=== PATIENT | female | born 1970 ===

== ENCOUNTER 2023-12-02 20:29 | Outpatient (REF) | payer OTHER, SELFPAY ==
[2023-12-08 11:10] LABS: Age Gdln ACOG Testing Note (.); HPV Aptima Negative (Negative); IGP, Aptima HPV, rfx 16/18,45 Note (.)
== END 2023-12-02 20:30 | disposition home or self-care (01) ==
LOC: LAB 20:29
PROVIDERS: Visit Provider Physician Assistant
DX: Z01.419 Encounter for gynecological examination (general) (routine) without abnormal findings (principal)
CPT/HCPCS: 87624; G0145

== ENCOUNTER 2023-12-17 08:52 | Outpatient (OUT) | payer OTHER, SELFPAY ==
--- NOTE | 2023-12-17 08:58 | MM_ITS ---
Patient Name: CHACE ROPER MR#: [id number] : 1970 Exam Date: 12/17/2023 Ordering Doctor: DR Yoshi Bolton . RADIOLOGY REPORT PROCEDURE: MM TOMOSYNTHESIS SCREENING BI COMPARISON: MM TOMOSYNTHESIS SCREENING BI, 06/09/2022. MAMMO LT DX, 06/04/2020. MAMMO GAYATHRI SCREEN, 05/24/2020. MAMMO GAYATHRI SCREEN, 05/23/2019. INDICATIONS: Screening Calculator Name NCI Breast Cancer Risk Assessment Tool 5 Year Breast Cancer Risk 1.00% Lifetime Breast Cancer Risk 7.70% Personal Breast Cancer No Personal Ovarian Cancer No Treatments None Family Cancers None LOCATION: [facility] BREAST COMPOSITION: There are scattered areas of fibroglandular density. FINDINGS: DIAGNOSTIC CATEGORY 1--NEGATIVE. RIGHT BREAST: No significant suspicious finding. No significant change has occurred. LEFT BREAST: No significant suspicious finding. No significant change has occurred. RECOMMENDATIONS: ROUTINE MAMMOGRAM AND CLINICAL EVALUATION IN 12 MONTHS. PLEASE NOTE: A NORMAL MAMMOGRAM DOES NOT EXCLUDE THE POSSIBILITY OF BREAST CANCER. A CLINICALLY SUSPICIOUS PALPABLE LUMP SHOULD BE BIOPSIED. Dictated by: Andreas Guzman M.D. on 12/30/2023 at 13:03 Approved by: Andreas Guzman M.D. on 12/30/2023 at 13:12
--- NOTE | 2023-12-17 08:58 | XR_ITS ---
[address] [address] Patient Name: CHACE ROPER MRN: [id number] date: 1970 Sex: F Assigned Patient Location: [facility] Current Patient Location: [facility] Accession/Order Number: [id number] Exam Date: 12/17/2023 09:18 Report Date: 12/17/2023 09:49 At the request of: HELADIO WALKER Procedure: XR DEXA axial skeleton EXAMINATION: XR DEXA axial skeleton HISTORY: Postmenopausal state Z78.0 COMPARISON: No relevant comparison available. TECHNIQUE: Dual-energy X-ray absorptiometry (DXA) was performed. FINDINGS: SPINE ANALYSIS: Average bone mineral density is 1.335 g/cm2. T-score (standard deviation relative to young adult mean): 1.3 . HIP ANALYSIS: Lowest bone mineral density is within the right femoral neck, 0.944 g/cm2. T-score (standard deviation relative to young adult mean): -0.7 . XR/XR DEXA axial skeleton IMPRESSION: [employer] Classification: Normal - Low Fracture Risk FRAX: Electronically authenticated by: KAMERON ARROYO Date: 12/17/2023 09:49
--- OUTSIDE RECORDS SUMMARY | 2023-12-17 09:05 | XMS_ITS | CCD ---
Author Organization [facility] Care Team Providers Care Apprise Counselor Name Role Phone LUISITO RUBIO Unavailable Unavailable MTZ, NICK W Unavailable Unavailable LUISITO RUBIO Unavailable Unavailable MTZ, NICK W Unavailable Unavailable Mtz, Nick W Primary Care Unavailable Eisenstein, Alisson Attending Unavailable Eisenstein, Alisson Admitting Unavailable Le, Rob K Admitting Unavailable Mtz, Nick W Primary Care Unavailable Le, Rob K Attending Unavailable Mtz, Nick W Primary Care Unavailable Mtz, Nick W Primary Care Unavailable Eisenstein, Alisson Attending Unavailable Eisenstein, Alisson Admitting Unavailable JACQUELINE MALAVE Attending Unavailable Problems Problem Classification Problem Date Documented Date Episodic/Chronic Immunizations and screening for infectious disease (1 source) Encounter for screening for human papillomavirus (HPV); Translations: [Encounter for screening for human papillomavirus (HPV)] Onset: 03-15-2018 Episodic Unclassified (1 source) Encounter for screening mammogram for malignant neoplasm of breast; Translations: [Encounter for screening mammogram for malignant neoplasm of breast] Onset: 03-24-2018 Episodic Results Test Name Value Interpretation Reference Range Facility Consent Formson 06-29-2023 Consent Forms [id number] GTIFF Normal [facility] CMP Standardon 05-20-2023 eGFR Non AA >60 Invalid Interpretation Code [facility] Comment on above: Performed By: #### 1 [id number], 4896436, 1319141, [id number], 3658740, 8280179, 9312762 ####[facility] (DEFAULT)[address] [place] [address] eGFR AA >60 Invalid Interpretation Code [facility] Comment on above: Performed By: #### 1 [id number], 2239161, 3368984, [id number], 6859235, 2385374, 2778555 ####[facility] (DEFAULT)[address] [place] [address] Albumin [Mass/Vol] 4.1 g/dL Normal 3.5-5.0 [facility] Comment on above: Performed By: #### 1 [id number], 2249704, 1234928, 3945575761, 5422066, 7934570, 9147741 ####[facility] (DEFAULT)[address] [place] [address] Albumin/Globulin [Mass ratio] 1.0 {ratio} Low 1.4-2.6 [facility] Comment on above: Performed By: #### 1 [id number], 6972627, 1356279, 0067553175, 4260748, 5020980, 5700166 ####[facility] (DEFAULT)[address] [place] [address] Alk Phos 68 IU/L Normal 32-91 [facility] Comment on above: Performed By: #### 1 [id number], 1110372, 8079175, 9011964774, 4467205, 0127538, 7138192 ####[facility] (DEFAULT)[address] [place] [address] ALT [Catalytic activity/Vol] 19.0 U/L Normal 14.0-54.0 [facility] Comment on above: Performed By: #### 1 [id number], 2601004, 6427069, 0749016150, 4889345, 4864607, 3457211 ####[facility] (DEFAULT)[address] [place] [address] 26744 Anion gap [Moles/Vol] 11.6 mmol/L Normal 5.0-19.0 [facility] Comment on above: Performed By: #### 1 [id number], 1620457, 1465490, 2783073477, 3733667, 6188568, 9802950 ####[facility] (DEFAULT)[address] [place] [address] 69450 AST [Catalytic activity/Vol] 21 U/L Normal 15-41 [facility] Comment on above: Performed By: #### 1 [id number], 4589914, 7898648, 8499421481, 4568093, 9498442, 8746820 ####[facility] (DEFAULT)[address] [place] [address] 24003 Bili Total 0.8 mg/dL Normal 0.3-1.2 [facility] Comment on above: Performed By: #### 1 [id number], 7357516, 9239664, 0300576715, 0121170, 0994281, 9995460 ####[facility] (DEFAULT)[address] [place] [address] 46526 Calcium [Mass/Vol] 9.3 mg/dL Normal 8.9-10.3 [facility] Comment on above: Performed By: #### 1 [id number], 4815720, 3117515, 8723338925, 3230668, 2810051, 5555427 ####[facility] (DEFAULT)[address] [place] [address] 20100 Chloride [Moles/Vol] 104 mmol/L Normal 101-111 [facility] Comment on above: Performed By: #### 1 [id number], 6518715, 0135070, 7885226596, 4361785, 6039208, 7319131 ####[facility] (DEFAULT)[address] [place] [address] 94078 CO2 [Moles/Vol] 25 mmol/L Normal 21-32 [facility] Comment on above: Performed By: #### 1 [id number], 7654536, 2575351, 2204509695, 3986843, 6374150, 3544544 ####[facility] (DEFAULT)[address] [place] [address] 73955 Creatinine [Mass/Vol] 0.90 mg/dL Normal 0.60-1.30 [facility] Comment on above: Performed By: #### 1 [id number], 7347441, 9678122, 5986491214, 9299851, 2318422, 4445088 ####[facility] (DEFAULT)[address] [place] [address] 53914 Globulin (S) [Mass/Vol] 3.8 g/dL Normal 1.5-4.3 [facility] Comment on above: Performed By: #### 1 [id number], 2882432, 2695716, 2234983898, 9824325, 2885484, 7921009 ####[facility] (DEFAULT)[address] [place] [address] 53902 Glucose [Mass/Vol] 108.0 mg/dL Normal 74.0-118.0 [facility] Comment on above: Performed By: #### 1 [id number], 4759973, 1532647, 4869279107, 8514709, 6546167, 0148206 ####[facility] (DEFAULT)[address] [place] [address] Osmolality 276 mOsm/L Invalid Interpretation Code [facility] Comment on above: Performed By: #### 1 [id number], 7224660, 1663883, 8780963912, 5236305, 0417148, 8360742 ####[facility] (DEFAULT)[address] [place] [address] 73835 Potassium [Moles/Vol] 3.6 mmol/L Normal 3.6-5.1 [facility] Comment on above: Performed By: #### 1 [id number], 7482957, 9852499, 3941104127, 7220940, 6588747, 5301247 ####[facility] (DEFAULT)[address] [place] [address] 03975 Protein [Mass/Vol] 7.9 g/dL Normal 6.5-8.1 [facility] Comment on above: Performed By: #### 1 [id number], 6354705, 2054330, 0831292757, 0581521, 6743185, 4039921 ####[facility] (DEFAULT)[address] [place] [address] 16623 Sodium [Moles/Vol] 137.0 mmol/L Normal 136.0-144.0 [facility] Comment on above: Performed By: #### 1 [id number], 9712067, 5957056, 4044584525, 2963418, 4658226, 0011020 ####[facility] (DEFAULT)[address] [place] [address] 75936 Urea nitrogen [Mass/Vol] 16 mg/dL Normal 03-20 [facility] Comment on above: Performed By: #### 1 [id number], 8482179, 9579506, 5735227011, 9270312, 1437430, 9788580 ####[facility] (DEFAULT)[address] [place] [address] 25062 Urea nitrogen/Creatinine [Mass ratio] 17.7 mg/mg High 4.6-16.2 [facility] Comment on above: Performed By: #### 1 [id number], 3041018, 8631969, 0454157150, 9507405, 3200405, 2758044 ####[facility] (DEFAULT)[address] [place] [address] 45038 GGTon 05-20-2023 Gamma glutamyl transferase [Catalytic activity/Vol] 13.0 U/L Normal 7.0-50.0 [facility] Comment on above: Performed By: #### 1 [id number], 3012528, 0805007, 9219033345, 4567402, 2362969, 7142809 ####[facility] (DEFAULT)[address] [place] [address] 52143 Iron Levelon 05-20-2023 Iron [Mass/Vol] 96.0 ug/dL Normal 28.0-170.0 [facility] Comment on above: Performed By: #### 1 [id number], 8563045, 5593880, 9982065784, 7420927, 5479338, 5059264 ####[facility] (DEFAULT)[address] [place] [address] 49772 LDHon 05-20-2023 LDH 154.0 IU/L Normal 98.0-192.0 [facility] Comment on above: Performed By: #### 1 [id number], 2235758, 8380044, 8156948585, 5310811, 9547757, 0861937 ####[facility] (DEFAULT)[address] [place] [address] 09047 Lipid Panel Standardon 05-20 Cholesterol [Mass/Vol] 179.0 mg/dL Normal 66.0-200.0 [facility] Comment on above: Performed By: #### 1 [id number], 0587629, 0854466, 0742001902, 0384457, 1377879, 8338696 ####[facility] (DEFAULT)[address] [place] [address] 43085 Cholesterol in HDL [Mass/Vol] 66 mg/dL Normal 40-71 [facility] Comment on above: Performed By: #### 1 [id number], 6755308, 8735261, 7644749056, 3276896, 8244965, 1756395 ####[facility] (DEFAULT)[address] [place] [address] 81140 Cholesterol in LDL [Mass/Vol] 98 mg/dL Normal 1-100 [facility] Comment on above: Performed By: #### 1 [id number], 0767385, 5392155, 5331641943, 0677230, 0284455, 9918293 ####[facility] (DEFAULT)[address] [place] [address] 55063 Cholesterol.total/C holesterol in HDL [Mass ratio] 2.7 {ratio} Normal 0.0-4.5 [facility] Comment on above: Performed By: #### 1 [id number], 3703304, 7783498, 6452094175, 8614178, 9230310, 2244140 ####[facility] (DEFAULT)[address] [place] [address] 73557 Triglyceride [Mass/Vol] 75.0 mg/dL Normal 0.0-150.0 [facility] Comment on above: Performed By: #### 1 [id number], 2060372, 6945126, 9724321568, 9151635, 6414489, 6677267 ####[facility] (DEFAULT)[address] [place] [address] 83012 VLDL. 15 mg/dL Normal 5-40 [facility] Comment on above: Performed By: #### 1 [id number], 8807613, 1327292, 5673694465, 4462814, 0490983, 7357609 ####[facility] (DEFAULT)[address] [place] [address] 79122 Phoson 05-20-2023 Phosphate [Mass/Vol] 3.0 mg/dL Normal 2.5-4.6 [facility] Comment on above: Performed By: #### 1 [id number], 0359570, 5567547, 8790809255, 8869096, 9676562, 0673627 ####[facility] (DEFAULT)[address] [place] [address] Uric Acidon 05-20-2023 Urate [Mass/Vol] 5.6 mg/dL Normal 2.6-8.0 [facility] Comment on above: Performed By: #### 1 [id number], 6209377, 1114046, 7809453787, 7232767, 9437815, 7277785 ####[facility] (DEFAULT)[address] [place] [address] Coding Summaryon 04-29-2023 Coding Summary HTMLBase 64 AzcmiihpCAb0xHi+PGhlYWQ +AO7TXFQzA07gqZXfbD3pM9 NMTElOSywgQVBQTElOSyIgb oPeXP8glORrROZg IC8+VZ8sKHSiVcqqzWKnr6G 2zQD2H40dvp7kMWspuME8DA EuXjTydvjgk4tsdRb5NKqsB mluOyBt RVAznG68BLE3zN30Hx49wAW pqXLks9ulrOs4LnItFTZyJD P1kPtwHRomq2GuVAExP54sy LKhi8U8 LPCrqFgtiSUqUjPnfHI1tE9 yXGidolvuu9obcvwgGit4sk 42wRCew2Y8gUB1G0WvcmE2R GJvbGQg YqioiPXQwN6remplc3mznwv nAuSqBUYfVDy7CRo7HAAvbD pgVkIeSD66HUI2GFWpufJcT 2FsLWFs vWxwVyL3b3W8Mc7WR9ENXfb sG3NCJQZLCHrzmNH+PC90cj 57O8RtYbezQmb3JTNeSYR6v XB5lM1z OTEtQCrxl3C6gKJ2S6JkjfQ dko2re3azHDNgEMvkK45xpW Stc0T6YGYbfIW1YQVilCiaY iBzaG93 Oyc+EBGcbBquq8OfYjbts7f fh2ohpHz0FedjTFCthiWybH mmIQR0w3GiPt6dJWJavSJ3j KO7rB9w XgAlYxG2GVljQ630OlQigWK tUsmiI58lG3MqgMT+PHRyPj z8DQIlzFgdHQ0dK5KbYLUrz mctbGVm yFzjTW4hBCUeaeimISUmaK4 oYQAjG1v4QzCbEsS4JKghI2 HtSPRguzyiGs74lK5tEcBxR uL9GQwp A8BzphK9LPYqiBPdACbhEEQ 3K37lo8U4TSYkDIGoAGP1tH P0dJ7skClnpjnurMKpxTfdo mVydGlj AYujZQfoC182LIQoqPwuQpP vZGluZyBEYXRlOiAgMTAvMD UvMjAyMzwvdGQ+LOCmEIK3c WxlPSAn eXIqFUotWx4peHregQdgHH1 qZHUpzlhtUZRobY4lTVXqdA WswWsfKW5oSBEbujxpn416H iAxMHB0 WZApdWIlR6VyoS5xKaRjINF aDAVuV4LaqHBjMPbhE808HX ldNlR7OVJkpcBzF4KqYOYah WduOiB0 q8M2Pl1Mi6OwmvkmK6AwxER wSxCxCyhvOTv4P7ThMopxtJ I+XG15JOPgCR56NIt9RTG1y WxlPSdi SVEoB7YdhO0gCjWpJCZlXXF kOyc+PHRhYmxlIHdpZHRoPS wjJXKlJrXxmNqpZR7yWk2nN GVyLWNv iYszkXMlZwHrk6xiUPNqRCj wWA0odJkbG8LvsDM4CKOxs3 a3Of85R68fA2ZhpVM+PGNvb UE2mVC0 xF0bHxTkJpX6APlwD337PnU hvJMjMuqrm4xtx6lxoCb7Dn P1WPSuioSalXtcSZU0a1JyO n98N62c IHdpZHRoPSIxNSUiIHZhbGl dov8ibF0fHi0+FWSxmGK2fD X1cZ8mBoKbMwY9NWjfC971R nRvcCIv Lecry5yyx1sxlRw4GbUdYPN isrFbqYmjEMQ8h4FiYz95S6 YqtQtjm0BbXsq4nz95rYQap 9Y5bTH2 O6QqFKXrcomszLLceLxkJX3 gJJRjipscBKQlxJ2pUUKbL0 a4WrTvLdS5PDipQ0CfdyF4H GJvbGQg YQFqmNDTlM0lyctcy2uyavu gVpYgXTHfPFa3BCk7PSGsaV plUoBiUCS4AlZ4LUG7wCIwl Q2yhEnt sbefiG5gXap+FDO5qLWapYX AUT5oRhsrhOR+NZBeUYT4oE ziBPusJKIxzS1eKWGoB3i8Q iAwLjA1 XTdsC5IskmX9EGNzcZLbXEC hiBVMwP9yobguu9wfprjxRd PtFCIvDBo2TTa6HFAiiRjrS iBsZWZ0 LxU0SIU5aUBfkQ0agQzjpng usW6xAqo+OupoiAgjVJL4HS z9O4HpFzi0JRAncZmjPM5kx GFkZGlu Ur2ccTlitVrzVK8aLUJpxck cu200BhDzn2thPMAqeQUfMW ubIZR6Y34qp1N0EXNiPLIqG EL3cJS8 oO0cxMzfqgmizKHqcDbshwZ ihDhhUKjpOQspS867NMZxbN gjVtLuJTv4M6YgUze6UFSaa AkvYA3x vZUvVUnjRj5gqIlxiOctZS7 vTLUsktqmy649QuGfm4qyHH XsfJBeNExzQJE6G28dj6A1Q CMwMDAw XYT2lHZ5aE2fdJnutwranST mdDsgdmVydGljYWwtYWxpZ2 24UGHrnYgzOpXzgYp1Q6NgK gu7RWVq yShoHX0xsBZbITbqKw4zpCj irTarYO6cBBBokhoon333Aq Ymo3rjARWogCUiLKawQJG6P 42fr5S8 EUWsXZTjHCJ3zHT9mT2zvHr nbjogbGVmdDsgdmVydGljYW jwDQcoA355AUQxhSysUsFns GllbnQg GBqdKAn6X5ZtVqympQS+PC9 5ZABnSO11cIRxsWGgy3uvdG g7UsWlEQJpLGM6lZkeGTcux 3JkZXIt G85awSRez1Q8AJTxnJbisYQ bGqMfqQQ1sK0eAHqtcohrm8 cakymuLnnoa4gxpy94mI86O 29sIHdp ZHRoPSIzMCUiIHZhbGlnbj0 bvU5dMr4+GPVjkLN5uQW4rK 6tBQPcLfK9RQczL246GpKaf CIvPjxj a6wmb7wunRh4TgF4PTIxmpW kiQmqZBR3f4LaLr64N15pAZ dpZHRoPSIyMCUiIHZhbGlnb o6hgZ1n Ii8+EGEhmZI6gCH6sW5oYpT nZqN4CNydN476FlRhaHCdDa ncB69rS4OafGA+HRAwLxj1I CBzdHls CX6ffDDsYYirUn9tOTY3ShG lDkGcSUsfU8HiUYWbbuzzyu hjeYV2TPRuLBRrgW61Xj1mo DogMTBw cJKScJ4hattjf9dotxnlKbK qBQExOSo0KCg5GFKrxIiuSt SrRTI6WfL3JVB7oGHpdR1vt Glnbjog pZ9cG9OuVINguvbsJp22wB2 eXkTtInE1PYbdCcz+RFVSSV WHQ4TwXNyQBJfiFVHPWEP6M 9LqJxj9 JUVznJubJO1boHCrZLsbAl8 dhDewcVnmWU3eHASwwysnLP FloA6wYNQshQOloNnwTS0wL TBpbjtm x565MwVhCIP5OBAngNIiD9Y evU5bSxLzQDOoFSJlS3DtpI IsNBirE168TOoqIgR7FPVst vMwK6Ey FMXgvYplHcR5q0F5Cg8oLx7 sQr0rQNhzNW12ZS65lSWxg7 F8jYC1T7IqFUUevkhqjrrzh XS1TEMc HSPppV28kQBgGEkwZw2nm4A 9n842YDZeUEYyhT03Ho6hpP ezZBRazTHCvA4urcbpo5htu jogIzAw BDBbTVt0YFk3VPSxyHrxQsY tPJU5FzX7GVK7aBVwuS1ewD mganhidR6gOwv+NTMgWWVhc lA3C0Iq Evr4NDDdkQzcBE2suWIdPXw eMg1crYgwyDkeYK2zOGIgyo ozVAYlsO2jUTHupHGozPpwD H1nTSCj igsob539NiHbIIR2ZWZfjMZ eF5NxwI5fFbZwXVRkQZCqS4 OupYOwTPqtI890GJwgQnJ6B HZlcnRp S9ArBIBwvCcjNdL7d6Y3Yu9 LIQ9QIEL3B5XhBmj5RCCwlU btGT0puGJzFQomNe9cpSiqi XabZE9k RULljvbfAOTvbG8iRFImwAI hlEvpWH5qLWVsnnxfa262Pe PjMCY0MAEmfXWeU9SloC3qO iAjMDAw SUZhG9ChmSLfNOvkD800JOl cKcS8IMWxkvYlY2JfNVGgpP avTwG2c4E0Df1ZeGFxG1ZnS 2a8X6Rl PjwvdHI+BY59HBCxUK81pFY kmXNmv5bqwJp4PvMkUHGaGH Z8bTvoEMooa6SqLGAlD22ti DBcx8I0 TLOwxCoqpOEkEzUjfEP5yA1 xVMnkvlufv3npmbxsBxfrj1 gdge86cW49K59mQTefTDTyO SIzMCUi VPNxqKhvro5qtD4oYi7+PGN esZP7fHX7zE6xGaYaVtF3BY mwH200ArKooEGaDefuj1zop 3yjaYl7 IbUgYNCfyjJqsCrxKGV5o8X cCk22C79tKAloYULyONPoCJ DuBNUidOwfto0beX7zXr4+P C8hj8kr pm98kY41oMC+CFOnUNA2fAk xYPrbQMAbqI7yPIvhOzG2KH TdUoYzoB02wIHoEPgdYd8xa WdodDog VA4yWLLqyooto898RpKbs6c cTWQdvQNkZMibIZF9E61tp4 Y5IOEwXPWpWJD3hLR9sE0nw Glnbjog bGVmdDsgdmVydGljYWwtYWx yE130BQGsxPtuMpJxzURkU3 ppbtTKUO4eBokefDK+PHRkI WF9eJhm FQelWQAztO7pMKIvC9b0XtJ pLfQ3RLpuA1SrjaU6DMJvgU XzNFSqgPJBeC1lzlgcs2lje jogIzAw WEUaGTn2QWs2FWPbkBfwXbH lFYJ2FyO9LIJ5oWNjxI2lgN ncajwdmP0dWwn+RklOOjwvd GQ+PHRk FSD6cOqyBArfCQOapE2nBTR jY6b1BlFfNeP6TXhuG6Bhkb Q5IZFknXNtMFAftYSEhI9cv uigq9ox kgpgXyXwYHQgRRb1IVy5CZI zzUtvTbUbCSJ8RkB8TGR6yZ RwnG1ucNxhcywxbG5dCrr+T VJOOjwv dGQ+NPGeXYH4kZvhASvzQQP yyU7oWDIsO7j9NdXfYsH0QM icX2ItygH0RUEsmFNqEHAxc WXSnS8s tqvtt4bxyioySsVgLRTvTTd 1BDt4HZFhaEfxGyPsEYR5Xk T6FPE7oZHmoL3hhFjanzzsj G9wOyc+ ZOU0SHY2LC69BR01L0FyZwp vdGFibGU+PHRhYmxlIHdpZH BcWRffDYTnHhSheWsuSJ2sJ g0uVDMo LWN (more content not included)... [facility] Electronic Messagingon 04-23 Electronic Messaging --- --- --- --- --- --- --- --- --- From: Direct[employer] ([id number]), Directtest To: CHACE ROPER Sent: 04/23/23 05:47:43 AM EDT Subject: Discharge Summary Ready to View A summary regarding your recent visit is available in the Documents section of your Health Record. [facility] .Auto Diff 04-22-2023 Auto [place] % 5 % Normal 08-06 [facility] Comment on above: Performed By: #### 7 [id number], [id number], [id number], 68631139, 4344353865, [id number] ####[facility] (DEFAULT)[address] [place] [address] 74216 Baso Abs# 0.1 x10 Normal 0.0-0.2 [facility] Comment on above: Performed By: #### 7 [id number], [id number], [id number], 94473026, [id number], [id number] ####[facility] (DEFAULT)[address] [place] [address] 18525 Basophils/100 WBC (Bld) 1.3 % Normal 0.2-2.0 [facility] Comment on above: Performed By: #### 7 [id number], [id number], [id number], 19497539, 9282714041, [id number] ####[facility] (DEFAULT)[address] [place] [address] 41111 Eos Abs# 0.3 x10 Normal 0.0-0.4 [facility] Comment on above: Performed By: #### 7 049697, [id number], 8213273580, 85548247, 9072963654, [id number] ####[facility] (DEFAULT)[address] [place] [address] 24054 Eosinophils/100 WBC (Bld) 3.9 % Normal 0.9-4.0 [facility] Comment on above: Performed By: #### 7 921315, [id number], 9517314067, 42700178, 1575435045, [id number] ####[facility] (DEFAULT)[address] [place] [address] 86608 Lymph Abs# 2.2 x10 Normal 1.3-2.9 [facility] Comment on above: Performed By: #### 7 374011, [id number], 1805348278, 24709990, 1560702840, [id number] ####[facility] (DEFAULT)[address] [place] [address] 44634 Lymphocytes/100 WBC (Bld) 27 % Normal 14-48 [facility] Comment on above: Performed By: #### 7 536085, 9270281278, 3452242268, 80463758, 7798105107, [id number] ####[facility] (DEFAULT)[address] [place] [address] 72921 [place] Abs# 0.4 x10 Normal 0.0-0.8 [facility] Comment on above: Performed By: #### 7 643622, [id number], 7069850576, 54033383, 4964228903, [id number] ####[facility] (DEFAULT)[address] [place] [address] Neut Abs# 5.3 x10 Normal 1.5-9.2 [facility] Comment on above: Performed By: #### 7 424119, [id number], 5718842140, 25326181, 4823440540, [id number] ####[facility] (DEFAULT)[address] [place] [address] Neutrophils/100 WBC (Bld) 63 % Normal 44-88 [facility] Comment on above: Performed By: #### 7 950694, [id number], 5824615256, 45563129, 1539255200, 8487439329 ####[facility] (DEFAULT)[address] [place], [place] [address] CBC w/ Auto Diffon 3 Erythrocyte distribution width (RBC) [Ratio] 12.7 % Normal 11.5-15.0 [facility] Comment on above: Performed By: #### 7 304800, [id number], 4777508664, 08296611, 6441826181, 6076425323 ####[facility] (DEFAULT)[address] [place] [address] 95517 Hematocrit (Bld) [Volume fraction] 41.8 % High 33.7-40.4 [facility] Comment on above: Performed By: #### 7 592389, [id number], 5703658539, 37020882, 9747291838, 8088523769 ####[facility] (DEFAULT)[address] [place] [address] 10705 Hemoglobin (Bld) [Mass/Vol] 14.3 g/dL Normal 11.3-15.9 [facility] Comment on above: Performed By: #### 7 877558, [id number], 0842451193, 27136788, 0673391710, 3177960426 ####[facility] (DEFAULT)[address] [place] [address] Man Diff? Auto Invalid Interpretation Code [facility] Comment on above: Performed By: #### 7 186463, [id number], 0625968364, 16082463, 5038425667, 8457299414 ####[facility] (DEFAULT)[address] [place] [address] 50402 MCH (RBC) [Entitic mass] 31 pg Normal 24-34 [facility] Comment on above: Performed By: #### 7 158842, 7232156583, 8871133060, 12939550, 3935862800, 0609088598 ####[facility] (DEFAULT)[address] [place] [address] 85600 MCHC (RBC) [Mass/Vol] 34 g/dL Normal 26-37 [facility] Comment on above: Performed By: #### 7 458395, 1956103782, 7526483823, 04899977, 8976928112, 3322096210 ####[facility] (DEFAULT)[address] [place] [address] 12007 MCV (RBC) [Entitic vol] 90 fL Normal 81-100 [facility] Comment on above: Performed By: #### 7 108797, 0511215707, 7952986411, 11602397, 4724175153, 9708749748 ####[facility] (DEFAULT)[address] [place] [address] 66997 Platelet 343 x10 Normal 138-427 [facility] Comment on above: Performed By: #### 7 556929, 0864148288, 6579005604, 62718990, 6535647022, 9280007627 ####[facility] (DEFAULT)[address] [place] [address] 17798 Platelet mean volume (Bld) [Entitic vol] 8.6 fL Normal 6.3-10.2 [facility] Comment on above: Performed By: #### 7 752255, [id number], 3686068335, 42206879, 3602161279, 5709540080 ####[facility] (DEFAULT)[address] [place] [address] 33944 RBC 4.67 x10 Normal 3.70-5.30 [facility] Comment on above: Performed By: #### 7 021580, 0496886197, 4763617154, 41479147, 4606544193, 1041449735 ####[facility] (DEFAULT)[address] [place] [address] WBC 8.4 x10 Normal 3.5-10.5 [facility] Comment on above: Performed By: #### 7 349645, 4864070203, 2863062658, 46592786, 0365845536, 5433232096 ####[facility] (DEFAULT)[address] [place] [address] 59854 CMP Standardon 04-22-2023 eGFR Non AA >60 Invalid Interpretation Code [facility] Comment on above: Performed By: #### 7 073813, 8577511363, 0286211124, 20455232, 1820146911, [id number] ####[facility] (DEFAULT)[address] [place] [address] 87875 eGFR AA >60 Invalid Interpretation Code [facility] Comment on above: Performed By: #### 7 135177, 5386455251, 3303812341, 74915942, 2257489698, 2927665685 ####[facility] (DEFAULT)[address] [place] [address] 33157 Albumin [Mass/Vol] 4.7 g/dL Normal 3.5-5.0 [facility] Comment on above: Performed By: #### 7 098254, 7932375561, 3384117101, 62824240, 5912130867, 4569990900 ####[facility] (DEFAULT)[address] [place] [address] 53495 Albumin/Globulin [Mass ratio] 1.1 {ratio} Low 1.4-2.6 [facility] Comment on above: Performed By: #### 7 676361, 5571201870, 9660012740, 47957620, 0374776249, 6154570527 ####[facility] (DEFAULT)[address] [place] [address] 77106 Alk Phos 72 IU/L Normal 32-91 [facility] Comment on above: Performed By: #### 7 111983, 4956198701, 4774164354, 50509784, 1969564870, 0890956718 ####[facility] (DEFAULT)[address] [place] [address] 44249 ALT [Catalytic activity/Vol] 20.0 U/L Normal 14.0-54.0 [facility] Comment on above: Result Comment: Spec imen is slightly hemolyzed. Hemolysis may affect results. Recollect upon request Performed By: #### 7 798246, 2045872912, 1780259154, 83135036, 4113505128, 0803818379 ####[facility] (DEFAULT)[address] [place] [address] 89850 Anion gap [Moles/Vol] 14.0 mmol/L Normal 5.0-19.0 [facility] Comment on above: Performed By: #### 7 542628, [id number], 1304581937, 60413334, 4222599471, 9698648701 ####[facility] (DEFAULT)[address] [place] [address] 78973 AST [Catalytic activity/Vol] 30 U/L Normal 15-41 [facility] Comment on above: Result Comment: Spec imen is slightly hemolyzed. Hemolysis may affect results. Recollect upon request Performed By: #### 7 [id number], [id number], [id number], [id number], [id number], [id number] ####[facility] (DEFAULT)[address] [place] [address] 28783 Bili Total 1.3 mg/dL High 0.3-1.2 [facility] Comment on above: Performed By: #### 7 [id number], [id number], [id number], [id number], [id number], [id number] ####[facility] (DEFAULT)[address] [place] [address] 71684 Calcium [Mass/Vol] 9.8 mg/dL Normal 8.9-10.3 [facility] Comment on above: Performed By: #### 7 [id number], [id number], [id number], [id number], [id number], [id number] ####[facility] (DEFAULT)[address] [place] [address] 08741 Chloride [Moles/Vol] 106 mmol/L Normal 101-111 [facility] Comment on above: Performed By: #### 7 [id number], [id number], [id number], [id number], [id number], [id number] ####[facility] (DEFAULT)[address] [place] [address] 17082 CO2 [Moles/Vol] 22 mmol/L Normal 21-32 [facility] Comment on above: Performed By: #### 7 289949, [id number], [id number], [id number], [id number], [id number] ####[facility] (DEFAULT)[address] [place] [address] 75266 Creatinine [Mass/Vol] 0.93 mg/dL Normal 0.60-1.30 [facility] Comment on above: Performed By: #### 7 [id number], [id number], [id number], [id number], [id number], [id number] ####[facility] (DEFAULT)[address] [place] [address] 66020 Globulin (S) [Mass/Vol] 4.2 g/dL Normal 1.5-4.3 [facility] Comment on above: Performed By: #### 7 [id number], [id number], [id number], [id number], [id number], [id number] ####[facility] (DEFAULT)[address] [place] [address] 77647 Glucose [Mass/Vol] 123.0 mg/dL High 74.0-118.0 [facility] Comment on above: Performed By: #### 7 820290, [id number], [id number], [id number], [id number], [id number] ####[facility] (DEFAULT)[address] [place] [address] Osmolality 280 mOsm/L Invalid Interpretation Code [facility] Comment on above: Performed By: #### 7 [id number], [id number], [id number], [id number], [id number], [id number] ####[facility] (DEFAULT)[address] [place] [address] 89787 Potassium [Moles/Vol] 4.0 mmol/L Normal 3.6-5.1 [facility] Comment on above: Result Comment: Spec katiana is slightly hemolyzed. Hemolysis may affect results. Recollect upon request Performed By: #### 7 [id number], [id number], [id number], [id number], [id number], [id number] ####[facility] (DEFAULT)[address] [place] [address] 77057 Protein [Mass/Vol] 8.9 g/dL High 6.5-8.1 [facility] Comment on above: Performed By: #### 7 [id number], [id number], [id number], [id number], [id number], [id number] ####[facility] (DEFAULT)[address] [place] [address] 64463 Sodium [Moles/Vol] 138.0 mmol/L Normal 136.0-144.0 [facility] Comment on above: Performed By: #### 7 324237, [id number], [id number], [id number], [id number], [id number] ####[facility] (DEFAULT)[address] [place] [address] 78629 Urea nitrogen [Mass/Vol] 20 mg/dL Normal 8-26 [facility] Comment on above: Performed By: #### 7 [id number], [id number], [id number], [id number], [id number], [id number] ####[facility] (DEFAULT)[address] [place] [address] 31530 Urea nitrogen/Creatinine [Mass ratio] 21.5 mg/mg High 4.6-16.2 [facility] Comment on above: Performed By: #### 7 [id number], [id number], [id number], [id number], [id number], [id number] ####[facility] (DEFAULT)[address] [place] [address] ED Clinical Summaryon 2022 ED Clinical Summary [facility] - Emergency Department [address] [place] [address] ED Clinical Summary PERSON INFORMATION Name: CHACE ROPER Age: 53 Years Sex: FEMALE : 1970 MRN: Acct#: Visit Reason: Vision changes; Chest pain; CHEST PRESSURE, PALPITATIONS Arrival: 04/22/2023 10:12:35 Discharge: 04/22/2023 11:51:00 LOS: 000 01:39 Check In: 04/22/2023 10:12:35 Checkout:04/22/2023 11:51:00 Address: [address] [place] [address] PCP: Nick Mtz DO PROVIDER INFORMATION Provider Role Assigned Unassigned Mike SHINE, Kelsea ED Nurse 04/22/2023 10:14:22 Rob Marcelo MD ED Provider 04/22/2023 10:19:26 VITALS INFORMATION Vital Sign Triage Latest Temperature Tympanic Temperature Temporal Artery Pulse Rate O2 Sat 96 % 98 % Respiratory Rate 18 br/min 18 br/min Blood Pressure /90 mmHg /90 mmHg MEDICAL INFORMATION Medications Given: Allergy Information: No known allergies PHYSICIAN DOCUMENTATION Patient: CHACE ROPER Age: 53 years Sex: FEMALE : 1970 Associated Diagnoses: Chest pressure Author: Rob Marcelo MD Basic Information Time seen: Date & time 04/22/2023 10:20:00. History source: Patient. Arrival mode: Private vehicle. History limitation: None. History of Present Illness The patient presents with chest pain. 53-year-old female without prior history of coronary artery disease, but with significant and remarkable family history of coronary artery disease, presented to ER for evaluation of chest discomfort. Patient stated that she had noted onset of symptoms since yesterday evening, during or after dinner. She stated that she felt like tightness and pressure at the lower chest, sternal area, diaphragmatic region. She stated that she had some waxing and waning symptoms. She stated that she had some difficulty with sleeping last night and she kept thinking about the problem throughout the night. She reported feeling better today. However while at work, several hours ago, she felt recurrence of pressure and tightness. Patient denies any specific pain. She is not aware of any specific shortness of breath or dyspnea on exertion. She denies any diaphoresis. She had no other treatment prior to arrival. Patient presented to ER, with significant emotional distress associated with her family history. She expressed concern that her father had from a blood clot in his chest or heart at age 42. Some sort of rupture. She related that her mother passed out in her 50s, subsequently had multiple myocardial infarction and in her 60s. She stated that she has 2 sisters in her 30s who had already heart attacks. On review of the patient's chart, she had cardiac stress testing in 2020. She had echo in 2021. Will result in negative for acute process. She stated that she did not have any specific symptoms at time of those testing but more for monitoring and reassurance regarding her family medical history. Patient related that she does not smoke tobacco. Otherwise in good health. 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 Skin symptoms: No rash, Eye symptoms: Blurred vision, recent. ENMT symptoms: No sore throat, Respiratory symptoms: No cough, Cardiovascular symptoms: chest pressure. Gastrointestinal symptoms: No abdominal pain, no vomiting, no diarrhea. Genitourinary symptoms: No dysuria, Musculoskeletal symptoms: Negative except as documented in HPI. Neurologic symptoms: No headache, Endocrine symptoms: Negative except as documented in HPI. Health Status Allergies: Allergic Reactions (Selected) No known allergies. Medications: (Selected) Prescriptions Prescribed hydroCHLOROthiazide 12.5 mg oral capsule: 12.5 mg = 1 cap(s), PO, Daily, 30 cap(s), 0 Refill(s) lisinopril 5 mg oral tablet: 5 mg = 1 tab(s), PO, Daily, 30 tab(s), 0 Refill(s) Documented Medications Documented NAC 600 mg oral capsule: 1,200 mg = 2 cap(s), PO, BID, between meals, 60 cap(s), 0 Refill(s) NyQuil Severe Cold & Flu oral liquid: 30 mL, PO, q4hr, PRN: for cold symptoms, 236 mL, 0 Refill(s) ZyrTEC 10 mg oral tablet: 10 mg = 1 tab(s), PO, Daily, PRN: for allergy symptoms, 10 tab(s), 0 Refill(s). Past Medical/ Family/ Social History Medical history: No active or resolved past medical history items have been selected or recorded., Reviewed as documented in chart. Surgical history: No active procedure history items have been selected or recorded., Reviewed as documented in chart. Family history: No family history items have been selected or recorded., Reviewed as documented in chart. Social history: Social & Psychosocial Habits Alcohol 04/22/2023 Alcohol Use: Never Substance Use 04/22/2023 Substance use: Never Tobacco 04/21/2021 Smoking tobacco use: Never (less than 100 in l 04/22/2023 Smoking tobacco use: Ne (more content not included)... Normal [facility] ED Note - Physicianon 2022 ED Note - Physician Patient: Dylan ROPER Age: 53 years Sex: FEMALE : 1970 Associated Diagnoses: Chest pressure Author: Rob Marcelo MD Basic Information Time seen: Date & time 04/22/2023 10:20:00. History source: Patient. Arrival mode: Private vehicle. History limitation: None. History of Present Illness The patient presents with chest pain. 53-year-old female without prior history of coronary artery disease, but with significant and remarkable family history of coronary artery disease, presented to ER for evaluation of chest discomfort. Patient stated that she had noted onset of symptoms since yesterday evening, during or after dinner. She stated that she felt like tightness and pressure at the lower chest, sternal area, diaphragmatic region. She stated that she had some waxing and waning symptoms. She stated that she had some difficulty with sleeping last night and she kept thinking about the problem throughout the night. She reported feeling better today. However while at work, several hours ago, she felt recurrence of pressure and tightness. Patient denies any specific pain. She is not aware of any specific shortness of breath or dyspnea on exertion. She denies any diaphoresis. She had no other treatment prior to arrival. Patient presented to ER, with significant emotional distress associated with her family history. She expressed concern that her father had from a blood clot in his chest or heart at age 42. Some sort of rupture. She related that her mother passed out in her 50s, subsequently had multiple myocardial infarction and in her 60s. She stated that she has 2 sisters in her 30s who had already heart attacks. On review of the patient's chart, she had cardiac stress testing in 2020. She had echo in 2021. Will result in negative for acute process. She stated that she did not have any specific symptoms at time of those testing but more for monitoring and reassurance regarding her family medical history. Patient related that she does not smoke tobacco. Otherwise in good health. 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 Skin symptoms: No rash, Eye symptoms: Blurred vision, recent. ENMT symptoms: No sore throat, Respiratory symptoms: No cough, Cardiovascular symptoms: chest pressure. Gastrointestinal symptoms: No abdominal pain, no vomiting, no diarrhea. Genitourinary symptoms: No dysuria, Musculoskeletal symptoms: Negative except as documented in HPI. Neurologic symptoms: No headache, Endocrine symptoms: Negative except as documented in HPI. Health Status Allergies: Allergic Reactions (Selected) No known allergies. Medications: (Selected) Prescriptions Prescribed hydroCHLOROthiazide 12.5 mg oral capsule: 12.5 mg = 1 cap(s), PO, Daily, 30 cap(s), 0 Refill(s) lisinopril 5 mg oral tablet: 5 mg = 1 tab(s), PO, Daily, 30 tab(s), 0 Refill(s) Documented Medications Documented NAC 600 mg oral capsule: 1,200 mg = 2 cap(s), PO, BID, between meals, 60 cap(s), 0 Refill(s) NyQuil Severe Cold & Flu oral liquid: 30 mL, PO, q4hr, PRN: for cold symptoms, 236 mL, 0 Refill(s) ZyrTEC 10 mg oral tablet: 10 mg = 1 tab(s), PO, Daily, PRN: for allergy symptoms, 10 tab(s), 0 Refill(s). Past Medical/ Family/ Social History Medical history: No active or resolved past medical history items have been selected or recorded., Reviewed as documented in chart. Surgical history: No active procedure history items have been selected or recorded., Reviewed as documented in chart. Family history: No family history items have been selected or recorded., Reviewed as documented in chart. Social history: Social & Psychosocial Habits Alcohol 04/22/2023 Alcohol Use: Never Substance Use 04/22/2023 Substance use: Never Tobacco 04/21/2021 Smoking tobacco use: Never (less than 100 in l 04/22/2023 Smoking tobacco use: Never tobacco user Electronic Cigarette/Vaping 04/22/2023 Electronic Cigarette Use: Never , Reviewed as documented in chart. Problem list: No qualifying data available , per nurse's notes. Physical Examination Vital Signs Vital Signs 04/22/2023 11:20 EDT Heart Rate Monitored 67 bpm Respiratory Rate 18 br/min Systolic Blood Pressure 134 mmHg (Modified) Diastolic Blood Pressure 77 mmHg (Modified) SpO2 98 % Oxygen Therapy Room air 04/22/2023 10:46 EDT Heart Rate Monitored 79 bpm Respiratory Rate 18 br/min SpO2 97 % Oxygen Therapy Room air 04/22/2023 10:12 EDT Temperature Oral 37 DegC Heart Rate Monitored 90 bpm Respiratory Rate 18 br/min Systolic Blood Pressure 153 mmHg HI Diastolic Blood Pressure 90 mmHg SpO2 96 % Oxygen Therapy Room air . General: Alert, Age-appropriate, 53-year-old female, awake and alert; appears without obvious distress but did get emotionally upset, during our discussion regarding her family history. Skin: Wa (more content not included)... [facility] ED Note-Nursingon 04-22-2023 ED Note-Nursing Patient arrives with c/o midsternal chest pressure and feeling like her heart is racing. Denies any SOB. Family hx of cardiac issues, she has had a normal stress test within the last year that was normal. No past [place]. Patient tearful and states she is nervous at this time. Placed on dust mixer/continuous pulse ox/BP. [facility] ED Patient Summaryon 023 ED Patient Summary [facility] - Emergency Department [address] [place] [address] PATIENT DISCHARGE INSTRUCTIONS Patient Information Name: CHACE ROPER Age: 53 Years Date of : 1970 Reason For Visit: Vision changes; Chest pain; CHEST PRESSURE, PALPITATIONS Arrival Time: 04/22/2023 10:12:35 Primary Care Physician: Nick Mtz DO Attending Physician: Rob Marcelo MD Comment: Visit Diagnosis: Diagnoses This Visit Chest pain (70297563) Chest pressure (R07.89) Vision changes ([id number]) The Pharmacy at [facility] is open Wednesday through Wednesday from 9A to 6P and Wednesday and Wednesday from 9A to 5P Prescription Information: If you have been given a prescription for narcotics, seek immediate medical attention if you have any difficulty breathing or any sudden status changes such as confusion and sleepiness. If you or anyone you know is experiencing suicidal thoughts, mental health, alcohol and/or drug addiction problems; contact the [facility] 15/02 Crisis Hotline -Text 4HMEC jh 651213. If you received any narcotics, sedation, or any other medication that causes drowsiness for the next 24 hours, unless otherwise directed: ? Do not drive a car. ? Do not operate machinery such as power tools, lawn mowers, drills, sewing machines, or stoves ? Avoid alcoholic beverages and drugs for allergies, nerves, or sleep ? Do not make important personal or business decisions or sign any legal documents With: Address: When: Nick Mtz [address] [facility], [place] [address] Business (1) Within 7 to 10 days Comments: You were seen in the emergency department for chest pain. Diagnostic workup in the ER did not reveal an obvious cause for your chest pain. It does not appear to be cardiac related based on our findings. Additional diagnostic workup and evaluation may be necessary to explain your symptoms. You should followup with your family doctor or PCP within the recommended time for reevaluation as instructed. You may continue with any of your routine medications. Return to ER if you have any recurrent chest pain that concerns you especially with weakness, shortness of breath, dizziness or any other unusual symptoms. Medication Information: The exam and treatment you received today in the [facility] Emergency Department were for an urgent problem and are not intended as complete care. It is important for you to follow up with a doctor, nurse practitioner, or physician?s diploma medical assistant for ongoing care. If your symptoms become worse or you do not improve as expected and you are unable to reach your usual health care provider, you should return to the Emergency Department, we are available 24 hours a day. For those patients who have received Radiology results, the interpretation of your X-ray as given to you by our Emergency Department physician is only a preliminary report. The Radiologist will review your films and if there is a change in the diagnosis you will be notified by phone. Please make sure you have provided a working phone number so we can reach you if necessary. In the event that you had a lab culture while you were a patient in the Emergency Department, you will be notified by phone if there is a need to change your antibiotic. Please make sure you have provided a working phone number so we can reach you if necessary. [facility] Emergency Department has provided you with a complete list of medications post discharge. Please inform your warper creeler/provider of your visit and for further instruction on these medications. Any specific questions regarding your chronic medications and dosages should be discussed with your primary care physician(s) and/or pharmacist. Additional medications on your home medication list not specifically addressed. Please contact the ordering physician if you have questions about these medications. acetylcysteine (NAC 600 mg oral capsule) 2 cap(s) Oral 2 times a day. between meals. APAP/dextromethorphan/d oxylamine/PE (NyQuil Severe Cold & Flu oral liquid) 30 Milliliter Oral Every 4 hours as needed for cold symptoms. cetirizine (ZyrTEC 10 mg oral tablet) 1 tab(s) Oral every day as needed for allergy symptoms. hydroCHLOROthiazide (hydroCHLOROthiazide 12.5 mg oral capsule) 1 cap(s) Oral every day. Refills: 0. lisinopril (lisinopril 5 mg oral tablet) 1 tab(s) Oral every day. Refills: 0. Visit Information Allergies: Substance Reaction Symptoms Type Comments No known allergies Drug Vital Signs: Vitals and Measurements this Visit (last charted value for your 04/22/2023 visit) Vital Signs This Visit Temperature Oral: 37 DegC Heart Rate Monitored: 67 bpm Respiratory Rate: 18 br/min Systolic Blood Pressure: 134 mmHg Diastolic Blood Pressure: 77 mmHg SpO2: 98 % Oxygen Therapy: Room air Measurement (more content not included)... Normal [facility] Extra Redon 04-22-2023 Tube Collected Yes Invalid Interpretation Code [facility] Comment on above: Performed By: #### 7 [id number], [id number], [id number], [id number], [id number], [id number] ####[facility] (DEFAULT)[address] [place] [address] TnI HSon 04-22-2023 Troponin I High Sensitivity 3.9 pg/mL Normal <=15.0 [facility] Comment on above: Performed By: #### 7 [id number], [id number], [id number], [id number], [id number], [id number] ####[facility] (DEFAULT)[address] [place] [id number] Coding Summaryon 11-27-2022 Coding Summary HTMLBase 64 LqitpwzzUOq8tVo+PGhlYWQ +AC0NGDMxD71bsKOxmG8BU2 hTBU8QASOOZQUMGO6SGV6in MK4HCbsV6JxmvCv SnywzLZbKR87DEt2WXB8vIg uLJokhI0fjATfA7v6RaHpJI 46aU27SErwGXGeEmL8JvDcl jsgbWFy G0agFwEanRPhYfq+PHRhYmx lIHdpZHRoPScxMDAlJyBzdH kgHT3yVp7cGQHoNONgbXiix HNlOiBj r4mqELEdQTkpOR0okRceH4D rmAH4XBXaf7v8Tx43aIY+PH KtLDI4vZbtNGnlu164XsJxy 0drLDB6 pIOcDHfsJST7R94da9N7PSZ qHOJfLAY1vEI7zI6ldMivix bxB5BneJKsHiY0IMJ5wYWfy V9leYxg mjytpW0tOkj+P05NRC5EXRG YLT8YXzr1V3AmLaiqqOU+PC 30IEVnQS10bLLeoSJds9pbe Nj1IeCf GJOmUAN7zGxhBUyod6PhNTE zT72xnOXjp2F8PNHreIzerB GdLtDifML8cY8sPRmiufcpt 2hvdzsn Lzkpo1ymqw07dH95Y04cCWh bBIVmJVB4ZSFkUIIcpZpwhg 2leM2pAq8+KZvya9xcs2dob Oe5GjEi HMXnutDrsNnzYYF2x8BeLa0 4Z4GsiBqqx8TfOwz7np81lH Vnr1X8nSH6AGvhGIFidF1xO WxlZnQ6 YYLqBoOyvO35iLCaSDfhQc2 enTwsdSgxBA8sEKYymhorFJ QziK7rFQRirNIsjFmfQY2rU TBpbjtm b781CuNpFFQ6CEHdtEVfQ7S bsK6iVfWwAEWdYJUgC8XdfQ UuVRktN057AOksXfL8OKDqn nVoT7Dz SQHxyOjwLdO0g8E4Qq0Xu2P auizdBRY4KUftETI6ElS0Cs SeMhM9N1PaTkf5QTHdaZwlL A4sI1Sl IXJeijcnpqaztIZ7UVTvJNN uvN00oKWfXMotVd5jo5K6s2 62TMAlPXAoqM64Gn2itGdgD TBwdCBU iZ0xhrxli2igumnfCxKsCTY hXCn7TKp5LEIkaQudVjBaVZ D6SaQ8PSI1wAWpoI5tkQgde uywgU2e Oyc+K90xyX9rGUL3IHL7wyf mKBNuflJqML72IZ93V8AoQt wvdGFibGU+PGRpdiBzdHlsZ L6gIbSm g9gtu8KiJKcnP4DgCYOcGTf wNyp1ZCXiLIX8mJC8wB8mEQ HfONbsu2K8jDF5B7NkquAyx t1ww7rr RODoEVfyC96wlXQkz2A6LRN pkPR4QRRvzKqvPrAxwZ41Yx c+GPSqgWjfr8XrHxsyn2ago 4grbEo7 SoRhRADgkhInjYhlVUV8v5E bPl36M02cDWsfVZFpUJTxOG GrDGHrmWqtta3yuJ6yUn8+P GNvbCB3 wBC9pD6oMNAlWzI2WRqlD29 6XvMlyMZeMrtvc2oma7vjyA e2DtErWNTpfrVdmGvwPKG5k 2ZuRu40 A48rVUhaRCGxWTDlRZAdAGA owWbzng2bfW1eUr7+PC9jb2 sfgb95oX06rYQ+UYVkJJZ7t WxlPSdw BRWpcW3bNYrxEyB7TMLdTnK jkL91pRGjLTwaSn2hdDouhX yzDP3pIPEmvycst766FmMsy 2xkIDEw tPXoWBdmQAD8S97zg9P4AZM yTAKoFXC4dRB9kS4hvCglwx ogbGVmdDsgdmVydGljYWwtY WolX839 IHRvcDsnPlBhdGllbnQgTmF bOVt4U1YdLbm7CKVrrAgzKC 8rxFPrBJnrKu0xeXwtwRlqF A7wEHGl vbcpp937RwOks1iqXVVdiIH aBEegXOV4A25zi5X5ODNoBB KzTVS4lDI0nC5cfIsolflvl GVmdDsg dbFdzVaiJWexUNyfM180CHV baKehIcPkwzMaEVTypVU0KD 37YT54vKThv4U4yWR2R0LdH GRpbmct jpzxpUR8DCQiPJJylK61Lo4 omWcbPa9gZXWqWGT0JUDvzJ SkZ7ViaF9zWhQyHIZyFCSxP 3RleHQt GGttA955IYfcZmU6WSMrrkS eX6AuGHPurQecUeE2e3E9Db 8BK6J4KL68MW75iDIaf5M5q OU9I4Rl TDAlpveasiaqcNA2FQDrOHA odU32Es4eaYaiTw9tVSWfOU I7HTXgpLRqK3IbdF1nLiCwF DAwMDAw J1TxgUPmTUztU595AGjwUjQ 0TSQezlFhX2CoKCItsLhzAl J5k5B1Ti1WHLe2YJ74YW88v PWll8G5 sTZ3H7QbIFZvbvkvaolxwOW 9HDXjXKAiqH87Gt9yxKekRm 7kPCLkXQZ1RQLhwXRqY0Rwu C3oMsWa SMLjXYLlR8KuhBKzWOegN14 5OMwdBnW6FCAsiuQtG3BfWV OqjVtiIwT2e4Q5Xd3OELBpF R65PIR9 hSF2MV06SB85C5KvOolqwNI ibGU+PHRhYmxlIHdpZHRoPS zbMSYuLoKorVocNR8gSh2kD GVyLWNv gUjkxPXmKpWaa7beETDmHGn lJN6lySwwS3FmuDB4JAGpx0 b6Fo49A45cB0UrqOO+PGNvb HS0aPD4 nS3uMbSgTsY3PIbnT018MhV ifZBgLegro0hvb3pkcQo2Ee K2YTWajmXmiKjjZHL6y2PvW y77F82x IHdpZHRoPSIxNSUiIHZhbGl ctc5miV9tIf5+FRXnqFB2dD S2lV0rOaVeOwF1FLcmV000R nRvcCIv Cprjs5kgq2sztUv9CwSxJYO hfhQjtFevMTT1w7YdUh94N7 IsiEfxx5WkVhh9ch46lOFmz 5L3zEV2 A6QiMIXpkhxjxJUodZuxIA1 yUIBoamvcIHWdjV3fOHHkC5 x6BbByIhW3QYemT0ZptkQ3X DEwcHQg OPqcASK9W20dv7H2FCMpAGL lMTE9fCJ0uK0aoRhppcfvcB VmdDsgdmVydGljYWwtYWxpZ 246IHRv eVwgFNUqaN8yXNQtuDWkmPo aDX9kERAfkccpEcJARgfCYY yQECVJP5DFYS1ECveTSP52B G94gDCw o0R9nXN3W5NgMWJwilhasks agJY5NQZuAULanL03yPNcTS qeGn8pj6B6j353ZQYhULTmq C28Hc5c aKjwNUPtzLFZbX7mtgzfn8s fknphLbPwJKRxNDn7BCv8ZZ BsvOpeYcCeNBA0JhR9KKM3f HFteZ3x jPqapjvhzA4zVmt+MDYvMTI fTIt3MWgkiVH+HAOnWBN6rU loCTaiDWOjrC2dGTBaB3y8Y iAwLjA1 YWwoB0SiNONmxonaQm74eG9 dRcGmTtY8LBgcO4VtloW0XE JvnZTbDWmmMNR9L35vz9O1Q CMwMDAw QMX2kHW4xN7mnRrkhpgsfQQ mdDsgdmVydGljYWwtYWxpZ2 46IHRvcDsnPjUyIFllYXJzP G87LL69 cBFar3K8pLC9U2NzKWDrbug xnndazGV9GVXgXLWdpL65xG GmUJbgVd9cd7G0x942WUJaG DUwaW47 Ek6vfKjgNLRcyMGZfE4csks ch5gqegtoKbZuRTLoMQt0SF g2UDDhfTybIhPmKQW7InD5K YD3aNJd rG9akUfxfunkcR1wCqn+RkV BQIyGWW50VM69mGYpm0T2yM J9B8KtOEEtzptchluotRP6I DAuMDUw lJ86zMOeODdvJb9vj0H7t34 5FAKiLCDgjF57Du8zwTzhYK QhgJRDdZ3aiomwd1npikolK zAwMDAw TBc2EVx6WKRlzWguKnWbEXG 0UbS1HDE3lTMgrW6peEdxxr fecA7jPip+B4J6Y4XpWwasv HI+PC90 GQDkUE31eFKfuPBid3rmxFl 9MwNkDZKnOJH7oZhgFCann1 JkOKJvH91daWMaw0C5FLRxy GxhcHNl GyPkeLV5wP7sCKoixdtzd7n rwpodSbnpo7zdfs51eB27I0 9sIHdpZHRoPSIzMCUiIHZhb Fuukv5k bV2xKq0+BFJebNU2oFO7cV9 wLsBgXqV8EBicH016XrCruM KmZsood4iwm4zpjLn0ZaBsL SIgdmFs kYsyEPS6b0SgOm88L76hBSa pZHRoPSIyMCUiIHZhbGlnbj 6fcW1aVa0+LI7aq3emxy36w D48dHI+ ZLWnKST2yZnaDAblQGUbbH6 sPPxfAzO6UYYkBkDlhW59wX FjLQqwHo0cjHlohXsdWO8yR TBpbjtm t357CqHfh4inFFTdjMXeLMg uVGE6S57ne4E6HIIcULFsXW N1vFV0gC8fzHnmgelqrGLtt DsgdmVy iOplQRzhBMamO479YGKccMm mFyUupSSqJ7quqbXWAL6bKa wvdGQ+WDRtYGW6oZldHZloK WRswX3l XVSvV1v6ErYmMfD3SJcvO6A wicH2OCNcfTDgFODoeZYRiL 6mzxgzw5msowssFdYuTFJxM Gv2ZUh5 TIYuoPtnPiUmVZD9BwH4UFI 3vDVezN6bfPckfedivZ1tPw c+RklOOjwvdGQ+SCFmGFW9a WxlPSdw QFAnbW1pGTXqA7g5WkYmMgK 4BTmsD2LmbmJ4BOOjaOKtLO NnuDJWdZ6ghvvne2lslecxP zAwMDAw KSf2USl0KOZroNakIcHgQYE 8SfD7MTS9oFPisV9ajRtvgh xxzC4lCbu+TVJOOjwvdGQ+P HRkIHN0 nVzzNSqrJIOidK0qDAHwZ9o 4UqRaCkV8AQzvZ1WrvwM2KU WnyBZfDNUxiKGCzU3zgpysp 2xvcjog AqQwPKAcYVb8KWq1CODqzEr xBeAeVHF0HxM9UDT0jBFsjU 7moIahtwnvlI8bJjo+UGF5Z HD3LT92 XZ97C4PaGibigNWqlVL+PHR hYmxlIHdpZHRoPScxMDAlJy OypGjfZQ9cTz6gHJZuDATwi GxhcHNl OiB (more content not included)... [facility] Provider Orderson 11-23-2022 Provider Orders [id number] GTIFF [facility] US Carotid Duplex Bilateralo n 11-19-2022 US Carotid Duplex Bilateral DUPLEX ULTRASOUND EXAMINATION OF THE CAROTID ARTERIES. COMPARISON: None. HISTORY / INDICATIONS: Evaluate carotid stenosis. TECHNIQUE: Bilateral common carotid arteries, extracranial internal and external carotid arteries are evaluated with hodge-scale imaging, color Doppler, and spectral analysis according to a standard protocol. ICA-CCA ratios are calculated with client support representative peak-systolic velocities and recorded. Vertebral arteries are evaluated in one segment to evaluate for patency and character of flow. Comparison with previous evaluation is performed when available. Unless otherwise specified, all velocities are measured in cm/sec. Carotid stenosis is reported according to validated velocity parameters, similar to NASCET criteria. FINDINGS: Right Carotid: Plaque was noted. Velocity measurements as follows: Internal Carotid Artery 60/18, 79/29, 76/27. ICA to CCA ratio: 0.8. Left Carotid: Plaque was noted. Velocity measurements as follows: Internal Carotid Artery 64/25, 71/27, and 69/29. ICA to CCA ratio: 0.7. Antegrade flow was seen in both vertebral arteries. CONCLUSION: 1. Less than 50% stenosis of the right ICA. 2. Less than 50% stenosis of the left ICA. 3. Vertebral arteries are patent and demonstrate antegrade flow. Final Dictated by: Javid Arce Dictated DT/TM: 11/19/22 5:30 Signed (Electronic Signature): Javid Arce 11/19/22 8:01 pm Technologist: Evangelista SHELBY [facility] Coding Summaryon 07-28-2022 Coding Summary HTMLBase 64 ZjwryyhwSCu3nTp+PGhlYWQ +OV2UKDZxB31ymDXsmZ6GM7 qBAT5KXFEJPYTKBN4SXP9mp KI7ZMkwS4HabjBw WcpqhXAoVT11AXv3GLS5lCk iUKbtpE6bsDZjM3s4ZcCzEV 98mT82YGzeMOAaNgF7OwWsp jsgbWFy L9tnGmCbqTKvBhj+PHRhYmx lIHdpZHRoPScxMDAlJyBzdH xiUG9kKv3tCESpXDPjjVzpa HNlOiBj r2fqUGBhRRapSJ3wbIqtZ5D jyGF6DFWlm6f8Kb73hUG+PH ElNNO0jBveDEqzj265JlHey 6ncNAJ5 bMCeVLfyNVP2Z37sd4U1JQO dDJPbBBH2gAJ9wR5zpXcltu uaK8DdiEBgLqG9IJA3kGHbo E3lpHfy rbnbbM0qNjm+A19ZXG6PGSM PYC6KHtq5W2XyFbxebNK+PC 78OVOmIG99nGGsrQXkt0jhx Yq8LkNl KKMwDYQ3bYbxJEjxj4KyIPX fT89gcBTce1O1OFZicAewdU RlCaHdtBM6dX5fOCtyzrcsi 2hvdzsn Xnbtn9orjg08nV92W50kIPz gAQJxLZA1ILBhCHBdrMfsvv 2naZ8vWg6+AZehg4ufi4zrw Cl4KrIg BCTzybSzsEyuLHU0k6AmNj8 9T2UwnXuxi2WoXeh1wp40iS Ekn8G8mVK0VDvfNADrnD6zM WxlZnQ6 KDViZdMolM51wFJsMDgpDt4 rnYyxvRwzAT8wVQGcdhbxBG TjuA6sPZOhtXRsvHkcFH1fK TBpbjtm f586SlKqYQF2AGYnjETbD0H haI3rSaWmICIcAITaI6AndG ZsXNggX418DMndQqS0GXEgz yNzT4Lh TZOqrDnwDlB4l6Q1Kb0Cu4X rtxhxXWF0CAmuYQDlBqMnNm JyBfC1X3NyZld8LGQcyEyzQ J0uP2Do TVVoclccwopkkYH1GCCxSOT irU22bREwXKbpOx6po9U9o5 82GELmIGDvhB04Ao3ezGgvZ TBwdCBU uH7uygsbe8gpjktuAcYiEPL lYYq1KDx5GPPuvAuaPyFfNH B4MbH3SGW6oRQshD4kwSrce qenzH8k Oyc+F91rfA9iOWP1FQT6sls uIEThqzWcJS43PR76P9RyBp wvdGFibGU+PGRpdiBzdHlsZ V1uGjFj f4lft0RnHDywS4IqPQLoQDy vAxl7RCKrOJJ7qKC5xI4jWF CwWDwka9F8tOM9H6KxjbJkk x4kn8xl YLIcCXikA83ooRJfk5B7YCS ueBA9VLBtpZikSdVxlY04Vn c+ZWDawHmcb5WvSbjqa3dcx 4cvwAe3 QlYzXJWzwxSsgGeiXXM9x6Z vCs03B60dODwlBSAyYVCcPP MxTKLieHtrkf0yjH9bTj7+P GNvbCB3 nVZ5aB1nVZXyFyW9LLbxV79 4QhMnuLQeAwvmf0saf6zxlV e3OcEyFGWsceLurEzvLXX6i 0JuSd25 E22iVEghVAInHIYzXGQrTKU ttXxnci3mjU6gWf3+PC9jb2 dkem48eN16uNF+ZQWsJJF7w WxlPSdw HTMavX3vIZmxFcB0UBXgJfI qtJ41yQLqJYtmPt3kvXrydL upYR6iBHDqlvhwi316XeTnu 2xkIDEw uHUhLNntDTX4D89yw6N2IDS qFGRuKVB2wMF6qK5mkMmieu ogbGVmdDsgdmVydGljYWwtY UjuW146 IHRvcDsnPlBhdGllbnQgTmF xNFl2C4SjGmn2ZUNmnRmkYI 1heOJySQqwXu3tpAbdyVfjC G7xHOVy zktjy762UyDcp7orTGIdsPK lTVnkDWP8P43nj7Y7VTJqIV GbPDN5yEN1kR6uzGdcnzzng GVmdDsg cqAcsKmqQUlvFHutR848AFO suWacAaDljrVcSWSqzJZ0FF 64DG93kSTbn4H6jIG4Q4BmY GRpbmct fmtmxIJ8UMVwCKBtrW21Nv9 csTqnCj7vVWLqOHP5IJTrbY CjH5YtsC6hOyLaSBJqQQMzM 3RleHQt GEvxA917OPwkBrS9DXAabwR mI2IyNNElmBnoLdU7a3S6Xe 4TV3Q5XF13TB71pGQjb1L7z JF5F9Ps FTZvcxcyhsvqaLD8BSHgZPX zmJ34Wo3rgOvuJw3fLPGoGK M0JJPmtUMwT4LutZ4qYjNoJ DAwMDAw T4JvdAKbTLiuP077MAmnHjY 8ODMongRuW8IiJJXpoJprQt X6r1T5Hf5ORMs4CH04JT72e SChu9V4 lMA3Y1PfPVPfkhpgujxeuLX 5IHGmDRLohQ78Ej5paBetCg 7oKDPxEPU6IZVyeDBgQ8Utu L2tQuLq WRUbUQCzP7IllGNqGZrhM70 6IEdsYzB8UKOhveBfS8WsFG QtnMhuCgP9f0M4Ur3WJEJkM D48XMH2 yKU4XT52QB62D8WaSdkazYG ibGU+PHRhYmxlIHdpZHRoPS roFKRzOcTyqMxgXV4nEb8jW GVyLWNv nAgbsWIlMzVqu3baZBLmYSh fCK3axKyqC2TlxLM4CGJmi5 r1Bc60H79lE9TyrSK+PGNvb UG8tQZ5 jN9kFyAtFhR8WGknO025RvP rjTPkRoebx6qph0xcfUd7Ua X0EUGsbsHqyOskFWA3j7UwE l06N55g IHdpZHRoPSIxNSUiIHZhbGl ybe5fwF2hHq4+EUXvvGT2iT K6uS4tFzPcTsD8WJfdX665A nRvcCIv Grnrc6waq9tjvXs8WnEjRHE kaiAeoZdlJSZ5o8TbAa85T6 UtnFzke6InTip3md04yWAoz 5V9fKQ1 R0PgTXGjtltwlIFheFldHE5 xGRIejmdlLIGyaL4sLMAqT7 v9NrNfYdK4XBfiU4NyduD3N DEwcHQg HVgjFFP6R19qa5J8QHRkDOB xXBJ0kET3fA6xvPireazgsQ VmdDsgdmVydGljYWwtYWxpZ 246IHRv xDtrPCBzeB9tCQNbnISuiSl gXU6oJLDvbbmdRwFGTieNQO aNCNVHI5IHLD5VLioYTU88Z W64cURm y5J3vNO9D6WwAZYbdmcmbya okLT2DJPuHCKhjA37lUHfCB ttXi4wz4A9a595NHPaJQIhn U79Oe4w fEqdMPGynSKLxU7dwjhaw9b dkosqXyIfTRCaTWa0CZw9CR YuoPmsUhHoBVR3SdP1GZP3a GKeuB0l dGmutgccjO1kKxd+MDYvMTI oILj6IRgsfGM+CTVeOJC6tU nkEWvzIWExoX3eFRUiE2g5R iAwLjA1 MPsgL9KsZIZpleqqOp81wB0 jGeCqUzM2HZqmN9KqsvW7AM FxhTOfLJrxIAM8W35ox9R9E CMwMDAw SBX0xJN2mK0lkHneoramvXQ mdDsgdmVydGljYWwtYWxpZ2 46IHRvcDsnPjUyIFllYXJzP K35DE72 bHKha1Z6kQW1J6SiYRKllsy ldsyvpEM1EDOgOWLydM42sZ DeYQwtTb3bh2X1f456IKKjC DUwaW47 Ex7znWocYDPorPBHnX4pkgq jp1kdxecoLvWpSBTnASx4JW a8HKExrHneLxHcVBO5PyH7Z VC0bOYv rR5kbWhakogtfQ0xQpb+RkV SVViIYQ42TP74sSMla0L9tI O9I0KvLGEbkoodaxlvxHP5F DAuMDUw fJ70fFJgROulSe3kq5I9x60 9OVXoUIIcmN52Vo1zkFsdYK ZubLELkH2yvjrcv6csqzxdT zAwMDAw LYz7KJr8GNWpfBuqSvLlLYG 3KjG5YYS7mGQseX5tyZarkr vmsP7xBpg+Q2U1O9XuNtstr HI+PC90 KUIoQK79qREriUFkc1qndAq 7HkJbIVLsMRM5wPglVLwmc6 YaAFNcO02hiDZcq1I2VGSyn GxhcHNl KfRacKC0iC9qMAeozdary3p zrfvcIovxl2iaab64uE34E2 9sIHdpZHRoPSIzMCUiIHZhb Vxfos2p lX5zSy6+PAZmwXF5bZN1sE8 yJhLwPhM2QWtqQ104YbNidP LeDgrgb9rih2phaMg7BlMrY SIgdmFs oHxxIEJ6i5WmQz85F74aDAr pZHRoPSIyMCUiIHZhbGlnbj 6qxZ1oLk5+PD9ql3hzrg91h D48dHI+ FDEnRBD4vCciPUqfXOZqfO5 aYFbiXtP4NLNkWxSmxU42hQ NcYCthMy8xwSyczAhqJK0fJ TBpbjtm y250NeErx3dwJITtfCLyDBw rKYX6G86tw1L0HVPcASDuNO S9aOZ4iQ6syWzwnimtpJXug DsgdmVy nChsVUzkYMfxM854BPEmnYy sGvCfpHDlO9iyuxRLPO8hPq wvdGQ+SKPtHYT3rCfsSTdlD WFhjO4b UIOuX9f8ZvFhXbY9WUvwT8H ycjC6JHHbhTCaXZDpxNAZhC 2lcinln2ampgxdUaXcIYThA Gd8LCs8 MAAknBnvIkBfXYW4AdV1QTU 8eBSntX9frMbhhgieqD1kKz c+RklOOjwvdGQ+CUFcSUS5h WxlPSdw BLQdgX7uAIXaV0h8TmGyZiL 7MMrnO8UqryB9IFKdcLPcPD DfsENRoR7zyyxiv5mlncucN zAwMDAw MPp3AGg9KCQguUrsAzPqTBU 3KsA1HSW7tCWflJ0quZabsz yzqJ7mUkf+TVJOOjwvdGQ+P HRkIHN0 qMbbGZizYJQsoR6nPCEiS7x 9NlXsRaQ7JXadQ5VwssC4QS TonYSnYWMgfHWYoN2ooipbo 2xvcjog EgMePUZyDEv0TLh3YWMgsQd rPtSvUFQ8BuC3YPG2mVSehA 8qeOyyinvheL1xSme+UGF5Z LY8KN75 SC55U6JvHbspdRPjvUC+PHR hYmxlIHdpZHRoPScxMDAlJy WlkQvnWW2zAt8zEOTzNASen GxhcHNl OiB (more content not included)... Normal [facility] US Echocardiogram Completeon 07-24-2022 US Echocardiogram Complete DATE OF STUDY: 07/24/2022 US ECHOCARDIOGRAM COMPLETE Aortic root: 3.0 IVSd: 0.8 LVPWd: 0.9 The left ventricle appears to be normal in size and systolic function, with an EF estimated to be greater than 55%. There is normal left ventricular thickness with no significant wall motion abnormalities seen. The right ventricle appears to be normal in size and function. The left and right atrium appear to be of normal dimensions. No pericardial effusion is seen. The aortic valve is tricuspid and opening well with no significant stenotic or regurgitant flows seen. The mitral valve appears to be structurally normal with trace mitral insufficiency noted. No significant stenotic flows are seen. There is normal diastolic function noted. The tricuspid valve appears to be structurally normal with trace tricuspid insufficiency. RVSP is estimated to be 27 mmHg based on an RA pressure of 3. The pulmonic valve appears to be structurally normal with no significant stenotic or regurgitant flows seen. IMPRESSION: 1. Normal LV systolic function with an EF estimated to be greater than 55%. 2. No significant valvular pathology is seen. Dylan Dickson M.D. JOB #: [id number] Final Dictated by: Dylan Dickson MD Dictated DT/TM: 07/24/22 11:34 Signed (Electronic Signature): Dylan Dickson MD 08/24/22 9:10 am Technologist: [facility] Provider Orderson 07-23-2022 Provider Orders [id number] [facility]GTIFF [facility] DIGITAL SCREEN W OR WO C AD BILATERALon 03-24-2018 [facility] DIGITAL SCREEN W OR WO CAD BILATERAL EXAMINATION:BILATERAL DIGITAL SCREENING MAMMOGRAM, 03/24/2018TECHNIQUE:CC and MLO views of the left and right breasts were obtained. Computer aideddetection was utilized in the interpretation of this exam. 3D tomosynthesisimages were obtained.COMPARISON:Pre vious mammogram dated 03/09/2017, 03/17/2016, 03/10/2016HISTORY:Monisha oakley.FINDINGS:There are scattered fibroglandular densities in both breasts. There is nosuspicious mass, architectural distortion, or calcification.IMPRESSIO N: No mammographic findings of malignancy.BIRADS:BIRAD S - CATEGORY 1Negative, no evidence of malignancy. Normal interval follow-up isrecommended in 12 months.OVERALL ASSESSMENT - NEGATIVEA letter of notification will be sent to the patient regarding the results.[employer] recommends annual mammograms for women 40years and older.Interpreted by:Radha Gale, DOSigned by:Radha Gale, DO03/24/18inal result Normal [facility] HPV DNA High Riskon 03-17-20 18 HPV Interp Normal [facility] Comment on above: Result Comment: This test amplifies and detects DNA of 14 high-risk HPV types associated with cervical cancer and its precursor lesions (HPV types 16,18, 31, 33, 35, 39, 45, 51, 52, 56, 58, 59, 66, and 68).Sensitivity may be affected by specimen collection methods, stage of infection, and the presence of interfering substances.Results should be interpreted in conjunction with other available laboratory and clinical data.A negative high-risk HPV result does not exclude the possibility of future cytologic HSIL or underlying CIN2-3 or cancer.This test is intended for medical purposes only and is not valid for the evaluation of suspected sexual abuse or for other forensic purposes. Performed By: #### H PVH ####[address] [place] [address] HPV Type 16 Not Detected Normal [facility] Comment on above: Performed By: #### H PVH ####[address] [address] HPV Type 18 Not Detected [facility] Comment on above: Performed By: #### H PVH ####[address] [address] Other High Risk HPV Not Detected Normal [facility] Comment on above: Performed By: #### H PVH ####[address] [place] [address] HPV DNA High Riskon 03-16-20 18 HPV Sample .THIN PREP [facility] Comment on above: Performed By: #### H PVH ####[address] [address] Source CERVICAL MATERIAL Normal [facility] Comment on above: Performed By: #### H PVH ####[address] [address] Progress Noteon 03-15-2018 HIM IP Note OR Picu Nurse Normal [facility] Encounters Encounter Date Encounter Type Care Provider Facility Start: 12-02-2023 End: 12-02-2023 ambulatory JACQUELINE MALAVE Not Available Start: 05-25-2023 End: 05-26-2023 ambulatory Nick Mtz Facility:[facility] Start: 04-22-2023 End: 04-22-2023 Emergency department patient visit Rob Marcelo Facility:[facility] Start: 11-19-2022 End: 11-20-2022 ambulatory [place] Starr Mtz Facility:[facility] Start: 07-24-2022 End: 07-25-2022 ambulatory Nick Starr Mtz Facility:[facility] Start: 03-24-2018 End: 03-27-2018 Patient encounter LUISITO DE LA FUENTEHENSON [facility] Start: 03-15-2018 Encounter for gynecological examination (general) (routine) without abnormal findings LUISITO DE LA FUENTEHENSON [facility] Start: 03-15-2018 End: 03-16-2018 Patient encounter LUISITO Pizano [facility] Procedures Date Procedure Procedure Detail Performing Clinician Start: 03-24-2018 Screening mammograph y bi 2-view breast inc cad LUISITO RUBIO Start: 03-15-2018 Cytopathology proced ure, preparation of smear, genital source LUISITO RUBIO Payers Date Payer Category Payer Private Health Insurance [id number] 2014 Unknown [id number] 1970 Unknown [id number] [id number] 1970 Unknown [id number] [id number] [id number] 1970 Unknown [id number] [id number] [id number] 1970 Unknown [id number] [id number] [id number] Clinical Note 04-22-2023 Note Date & Type Note Facility 04-22-2023 Note [employer] [facility] Nonspecific Chest Pain Chest pain can be caused by many different conditions. Some causes of chest pain can be life-threatening. These will require treatment right away. Serious causes of chest pain include: ? Heart attack. ? A tear in the body's main blood vessel. ? Redness and swelling (inflammation) around your heart. ? Blood clot in your lungs. Other causes of chest pain may not be so serious. These include: ? Heartburn. ? Anxiety or stress. ? Damage to bones or muscles in your chest. ? Lung infections. Chest pain can feel like: ? Pain or discomfort in your chest. ? Crushing, pressure, aching, or squeezing pain. ? Burning or tingling. ? Dull or sharp pain that is worse when you move, cough, or take a deep breath. ? Pain or discomfort that is also felt in your back, neck, jaw, shoulder, or arm, or pain that spreads to any of these areas. It is hard to know whether your pain is caused by something that is serious or something that is not so serious. So it is important to see your doctor right away if you have chest pain. Follow these instructions at home: Medicines ? Take dwrr-xtx-jhdfude and prescription medicines only as told by your doctor. ? If you were prescribed an antibiotic medicine, take it as told by your doctor. Do not stop taking the antibiotic even if you start to feel better. Lifestyle ? Rest as told by your doctor. ? Do not use any products that contain nicotine or tobacco, such as cigarettes, e-cigarettes, and chewing tobacco. If you need help quitting, ask your doctor. ? Do not drink alcohol. ? Make lifestyle changes as told by your doctor. These may include: ? Getting regular exercise. Ask your doctor what activities are safe for you. ? Eating a heart-healthy diet. A diet and nutrition partner (dietitian) can help you to learn healthy eating options. ? Staying at a healthy weight. ? Treating diabetes or high blood pressure, if needed. ? Lowering your stress. Activities such as yoga and relaxation techniques can help. General instructions ? Pay attention to any changes in your symptoms. Tell your doctor about them or any new symptoms. ? Avoid any activities that cause chest pain. ? Keep all follow-up visits as told by your doctor. This is important. You may need more testing if your chest pain does not go away. Contact a doctor if: ? Your chest pain does not go away. ? You feel depressed. ? You have a fever. Get help right away if: ? Your chest pain is worse. ? You have a cough that gets worse, or you cough up blood. ? You have very bad (severe) pain in your belly (abdomen). ? You pass out (faint). ? You have either of these for no clear reason: ? Sudden chest discomfort. ? Sudden discomfort in your arms, back, neck, or jaw. ? You have shortness of breath at any time. ? You suddenly start to sweat, or your skin gets clammy. ? You feel sick to your stomach (nauseous). ? You throw up (vomit). ? You suddenly feel lightheaded or dizzy. ? You feel very weak or tired. ? Your heart starts to beat fast, or it feels like it is skipping beats. These symptoms may be an emergency. Do not wait to see if the symptoms will go away. Get medical help right away. Call your local emergency services (911 in the [place] Do not drive yourself to the hospital. Summary ? Chest pain can be caused by many different conditions. The cause may be serious and need treatment right away. If you have chest pain, see your doctor right away. ? Follow your doctor's instructions for taking medicines and making lifestyle changes. ? Keep all follow-up visits as told by your doctor. This includes visits for any further testing if your chest pain does not go away. ? Be sure to know the signs that show that your condition has become worse. Get help right away if you have these symptoms. This information is not intended to replace advice given to you by your health care provider. Make sure you discuss any questions you have with your health care provider. Document Revised: 09/25/2021 Document Reviewed: 09/25/2021 [employer] Patient Education ? 2022 [employer]. [facility] Summary Purpose Family History No Family History Records FoundNo Family History Records FoundNo Family History Records FoundNo Family History Records Found Advance Directives No Advanced Directives Records FoundNo Advanced Directives Records FoundNo Advanced Directives Records FoundNo Advanced Directives Records Found Additional Source Comments INFORMATION SOURCE (unrecogn ized section and content) DATE CREATED AUTHOR 03/16/2018 [facility] DATE CREATED AUTHOR AUTHOR'S ORGANIZ ATION 03/31/2018 [facility] DATE CREATED AUTHOR AUTHOR'S ORGANIZ ATION 07/01/2023 [facility] DATE CREATED AUTHOR AUTHOR'S ORGANIZ ATION 12/04/2023 [facility] EPIC FOR RECORDS PERTAINING TO PATIENTS WHO ARE OR HAVE BEEN ENROLLED IN A CHEMICAL DEPENDENCY/SUBSTANCEABUSE PROGRAM, SOME INFORMATION MAY BE OMITTED. This clinical summary was aggregated from multiple sources. Caution should be exercised in using it in the provision of clinical care. This summary normalizes information from multiple sources, and as a consequence, information in this document may materially change the coding, format and clinical context of patient data. In addition, data may be omitted in some cases. CLINICAL DECISIONS SHOULD BE BASED ON THE PRIMARY CLINICAL RECORDS. [facility] [employer] [facility]. provides no warranty or guarantee of the accuracy or completeness of information in this document.
== END 2023-12-17 08:53 | disposition home or self-care (01) ==
LOC: MAMMO 08:52
PROVIDERS: Visit Provider Obstetrics & Gynecology
DX: Z12.31 Encounter for screening mammogram for malignant neoplasm of breast (principal); Z78.0 Asymptomatic menopausal state
CPT/HCPCS: 77063; 77067; 77080

== ENCOUNTER 2024-12-12 19:13 | Outpatient (REF) | payer OTHER, SELFPAY ==
--- OUTSIDE RECORDS SUMMARY | 2024-12-12 19:17 | XMS_ITS | CCD ---
Author Organization [facility] Care Team Providers Care Base [place]ander Name Role Phone LUISITO RUBIO Unavailable Unavailable NICK MOODY Unavailable Unavailable LUISITO RUBIO Unavailable Unavailable NICK MOODY Unavailable Unavailable MEGHAN MALAVE Attending Unavailable Nick Moody DO Primary Care Provider LEONARDO BRUMFIELD Attending Unavailable LEONARDO BRUMFIELD Referring Unavailable NICK MOODY Primary Care Unavailable LEONARDO BRUMFIELD Attending Unavailable ALISSON RAWLS Referring Unavailable NICK MOODY Primary Care Unavailable LEONARDO BRUMFIELD Attending Unavailable NICK MOODY Referring Unavailable MOODYNICK Rios Primary Care Unavailable Nick Moody DO Primary Care Provider Nick Moody Primary Care Unavailable Alisson aRwls Admitting Unavailable Alisson Rawls Attending Unavailable Nick Moody Primary Care Unavailable Unavailable Primary Care Provider Unavailabl e Medications Current Medications Medication Drug Class(es) Dates Sig (Normalized) Sig (Original) acetylcysteine 600 mg oral capsule (5 sources) Antidote, Mucolytic, Antidote for Acetaminophen Overdose Start: 09-21-2022 acetylcysteine (NAC) 600 mg capsule 09/21/2022 Active cetirizine hydrochloride 10 mg oral tablet (4 sources) Histamine-1 Receptor Antagonist take 1 tablet by mouth once daily cetirizine (ZyrTEC) 10 MG tablet Take 10 mg by mouth Daily Active cholecalciferol 0.125 mg oral capsule (4 sources) Vitamin D Cholecalciferol (Vitamin D) 125 MCG (5000 UT) capsule Active cholecalciferol, vitamin D3, (VITAMIN D3) 5,000 units capsule Active hydroCHLOROthiazide 12.5 mg oral tablet (2 sources) Thiazide Diuretic Start: 08-13-2022 hydroCHLOROthiazide (HYDRODIURIL) 12.5 mg tablet 08/13/2022 Active hydroCHLOROthiazide / Lisinopril (5 sources) Thiazide Diuretic, Angiotensin Converting Enzyme Inhibitor LISINOPRIL-HYDROCHLO ROTHI AZIDE PO Active take 10-12.5 mg by m outh once in the morning lisinopril-hydroCHLOROthiazide (ZESTORET IC) 10-12.5 mg per tablet Take 1 tablet by mouth in the morning. Active ivermectin 3 mg oral tablet (3 sources) Antiparasitic, Pediculicide ivermectin (Stromect ol) 3 MG tablet Active LDN (3 sources) LDN Active lisinopril 5 mg oral tablet (2 sources) Angiotensin Converting Enzyme Inhibitor Start: 08-13-2022 lisinopriL (PRINIVIL,ZESTRIL) 5 mg tablet 08/13/2022 Active nattokinase (3 sources) Nattokinase 100 MG capsule Active Problems Problem Classification Problem Date Documented Da te Episodic/Chronic Immunizations and screening for infectious disease (1 source) Encounter for screening for human papillomavirus (HPV); Translations: [Encounter for screening for human papillomavirus (HPV)] Onset: 03-15-2018 Episodic Other connective tissue disease (3 sources) Cramp in lower limb; Translations: [Sleep related leg cramps] Onset: 09-27-2024 09-27-2024 Chronic Other nervous system disorders (1 source) Claudication Onset: 10-30-2024 Episodic Peripheral and visceral atherosclerosis (4 sources) Intermittent claudication; Translations: [Peripheral vascular disease, unspecified] Onset: 09-25-2024 09-27-2024 Chronic Residual codes; unclassified (1 source) Localized edema; Translations: [Edema] Onset: 11-07-2024 11-07-2024 Episodic Unclassified (3 sources) Encounter for screening mammogram for malignant neoplasm of breast; Translations: [Patient encounter status] Onset: 03-24-2018 12-12-2024 Episodic Varicose veins of lower extremity (5 sources) Varicose veins of lower extremity; Translations: [Varicose veins of bilateral lower extremities with pain] Onset: 09-25-2024 09-27-2024 Episodic Results Test Name Value Interpretation Reference Range Facility Consent Formson 08-10-2024 Consent Forms [id number] TIFF [facility] Coding Summaryon 05-31-2024 Coding Summary HTMLBase 64 SmrpryeaFMs6iMw+PGhlYWQ+ JX5HUPHlI26fuMMsdQ9qA8KM TElOSywgQVBQTElOSyIgbmFt FE6mvVAmBEEk IC8+ZQ3yXHJwHxpizSRyx6G2 yRH1F69ihx4hXTwxiNZ6QSFb DlBvuekqi8zjhEc0TZxrKogw OyBt KVUjtX36CAA0fT48Cv71rOBu pLThw1ktvPq7BmRtPXQgEZY7 kEdlSVrgm8MeJOUwN88awBBb c2U6 KJQniIphaMIfJsWuqDR0sA9e VNbqwzznn2rzbzxfSlz1qo28 dKZcp6K0jBK0D9LesyB9WPTs bGQg SzpizQOHlG8sjesck4olstbo XbKwFCYcPPu7IMt8JGPrhLir NiVkPT21USW9AVCjemBjW8Pb LWFs lVkbFtA5a4M1Nu1GN3DJSprr C0QSQFPCOSqjyQA+JV66qb83 M2AeWzqqMow4CYSvQVH3dNB3 aD0n QMReOXqoy2H0fLP7W7XmvbBb ux5ws4vdZYGuSXqkF20ldDFn n0K8QGLhiEQ9JUNpqMgsYmLd aG93 Oyc+AYNmsXmyl9QrGduns4qn i3frwMn0RhumCKPqzvGckEzq VTQ0j6FfLd3fLVNzyZH9qAB0 aD0i ExUyUqC6DSkoL742UjQqcXWg QzfoZ76yY7YbuGY+PHRyPjx0 SSUjlLmyZP5wK6ZaIFIegqjq bGVm qAryYZ0aAHEylmdmXIMxoH4w SPXaD0q6AqVhVpA1NByzF0Cm EJWsqoftBa35lN7nQpJeHzP8 MGlu P6GubeW5HLKqvLZpOAgdMAN3 L59zz6P6NCZcGTVfCTH3pOE1 oQ6iuLyydotscOAmiKesggYh dGlj UKpkZAvjG388MEPadGwxVhDe ZGluZyBEYXRlOiAgMTEvMDYv MjAyNDwvdGQ+WEQmYUR0tIgu PSAn gOVhFZikQd5zwJuvuWhmEG2y KEUddotkRTGbkA3cDRZyaFWm yKhmNJ2jCLAjaiwmt177WvZn MHB0 SUDehKFrA3TsxO2sJhKzJTCq AJAaV4DqwZTbZRczT231LQzo BxJ4NBRhtrIwV4IySHJjnHhw OiB0 j1F3Ua9Sl2VpjrfpE7NhoWKg GuQbPyoiUKg8I9WeUjlfdYN+ HJ80RPMfDX64DEx7RRZ0lVly PSdi ZTKnN8NtpX6rPfNoLVAfRUCw Oyc+PHRhYmxlIHdpZHRoPScx PBEsIfKlvTciTQ0xHp2aBMDl LWNv oXyvoIDgUaUzy9qaCKGzYLnh UF6bsEubR9VcmFT8LZKds1l5 Hb94G07yH5IdhRZ+PGNvbCB3 aWR0 nT9hVwYeMwO6GPyfE777BrQd oAMoJslxf3dcb2jyyYa0HwW6 FBBhukNmmClgOBS9c1BqBm61 Y29s IHdpZHRoPSIxNSUiIHZhbGln pe9ljE0bLi3+QRCfsNC0wSU8 gS0hJkBcJjH0GSalH252PrBa cCIv Tiurc2gsx6glcMn7GuJbFJFq fxKmpQccSLT6v1KbLt44A7Bn bFstz0DpEcb7mq48gVYlp9Y5 bGU9 E5KnOPKzhvkkcTLzeRlpTA4i HRLxjsmgZISfnB3zSZXnX6b6 WcOoYpU4ZIgaN8YskfV7ZQTb bGQg BHVkoAIBrI1bqmmel1dxesao GhNbPQLyDVf2WNl8JYWbnFrg SzReKFA9RxB0UBN3dNRxxA9o bGln iozmwN9xWgp+EKV9yIYleATC JC8fBqjnrVH+TYRcNGY7eJhh VRkqZMYpuU3iHVJhR9j5GqBc LjA1 GUnvT3ZqxqT2XUQxjWEfDANf xRQLdK8mbkubo1yyvvpeQoPa DMLmYVq8QCz5YTKkfJitUzJj ZWZ0 CiP5JIE2aYMrkL8rnBhhdpvh tJ1fXjt+SvkrmJlyZBB8ZCd2 U7HvUiq9NPDfoRhrNG9jkJJm ZGlu Fp2icIojcVgpPV3hSFVgbvcg x989BfMzl5bvZOJvbSTjSIcl HDK5X88ef0E1IPJmFUUuVFM0 dGV4 jJ0agTjacteklPKqdPbsxhFe pNswGJztYLtzV495IMFwkNxl UjNwKBx9N4KrKga9VUDqjFxs ZT0n jSVqBYotBf7qpKvofUlrCV6p VYWetpkpy620RiKte5dnZOWw mSUhILcvGYU4B26rl4Q0PWLd MDAw MBD5zWV2bB7pmPplfmnymLNy vCxilsTagTkdSFwgIYhbO842 OTDxePenGrFjlSh4A9LaExj1 ZCBz jKniQV3gnYXqPStqCh7ulVmf gIroCU6jXOKbsttmy351YsEt o3dnPJNcrBFuSOaaAUJ9M65z b3I6 ZBQqTIFkLKT4hWI3mT9kwZix bjogbGVmdDsgdmVydGljYWwt BHonJ782RSJhdIzhWwMziQat bnQg UJggAQc1N0XtYqqlbKF+PC90 AMLgSA09eBNcbHNwu8douZw7 BxMvSLVfKUZ0gLfmWMlgj2Hh ZXIt P15apABbs3O1BLUwhQdbtDYn BwXhyEN3gR7bXOxgxzloj7bc ynehAonok3qtte06aP29I25c IHdp JXNtAIIdQDIlQFMxdYkqlv9z eL1iIh9+ITUlzLW1zZZ8yH0w VOErWfP4GMuiF894WvAqjCXx Pjxj l1byp9jczRy4FjY5FQVvapPl wNdfYLY3c9JyLp95O12wEMzu WPQfNXPeAKSqTQJnfLhymx2z dG9w Ii8+DJQuoLC6jIY8hG0fRvEn JuF0LHelK877EfDlaPNpKpwk L34nS6BfwVX+NEOcUnf5YIQs dHls PI9gzNPqGUstAf3eITS5GbVx RhTiHXepY0JsBLTueiaukwev kLO5DRSqTQBxzW42Ao5huBvh MTBw sXVDvQ6motmpn1jtfzusNkWs RIYzXIn4UZp7FDHyfGgtRlMt CJW4YkU2TZJ0eLNfqK7xlEwb bjog dN0mJ4HpPGDpzptsMl65qJ8k XmGzGgE9FSrcGuy+RFVSSVZB B6CfWSrNAWchDWBGHWF2B0Cz Pjx0 RZXnsFctJO8mnDXyRIqsLy9i eXectPiqHF7qBAVbtntcWVUh qX5wOSPadLJcvXfmBD9aAFXz bjtm n498BqBpLQM7DJTodQHsB7Uk gU5uNxZmRHFaYEFgX3BstNOh OKneI784VBlzFnP5SBUriqIz Y2Fs ERTbkSioBzE4i2R6Ir6pDb8u Rg2eHFsrSD69AX82pSXmw7D5 pMP2M1GjLBDxllngixsnwUS6 IDAu XXPgmN98bOZtXIvoEo4wt7M2 y196MMKcDRJpfS51Km6atGsg QXZauOFArP6oilkuu5prgeiy IzAw PUKsROi1PJb9QTVtwNazXxYp TYE3RrV1ZXY5aUMkeD5hrQfm gtatjF6pDgl+NTQgWWVhcnM8 L3Rk Iqh8QQWzaGaiAQ3avSUsCXmg Hv0anIbltLhzCY6pBTJjdbqr ZCKetI4xTCAbvTIucDgxXH0a NTBp iblhr907NzJmSNH2OMSqwPFq V7YtbL7fKaCrNZLbSQCuQ0Qk mCHoVVceP659ISjwOjJ3CYQu cnRp B1DvSSBhlVjuUgV4b6Z2Jq1Q RN8JQEL7C6EvPky6PALtqWkc SJ4etRYaOChdPn0mgNxjiHbi MC4w JAOdqyqaGEHptE6oBGLwfVCi bYfdTO4xLMQurulat185BaNz PCT0VOQtlPHiG5SpmM5oXlXa MDAw OJAdF6FktLZaJTdoH707ORpr NsE1TUKcqfNlD7AdHQNzuSgq HgW5d1E6Vj6TGYsrkHV+PC90 cj48 N6CrYbyqMge4MYWvRMA3bFT1 qI7xLFAqACuxf1Z8bNT9O3Ba ulRrtp2vg4xsLKUhCHojO78t bGFw y0Q2ZFYzrDS2SEBbpXltAlRj kP98Ibc+OVNorVtdh5TeEmlj a2fyv7hlvSi9QmGlNROmnwYq aWdu BSD2b9TqDm89A83cWBebGMNy FFCeEFHpOWWugGrcnj5mmH8o Ii8+VMPcvBI9lJD5gC6sPgZc IiB2 XJqvG643EfKnuXQuXwvsr2nd a9ubeYn3QeFiYKRkzrCggNbh TXP1v0DlSc51W6ExeFzqa5Wc Pjx0 ne21vXPve1M9pXH8M1ToWPDk dryugBFyyTdpJP1bUXYwskde OXQrkQ7wFJXgV1h5JhTxOrR3 MGlu Z3MbdfN9ZPThkYDaDNWnzAAQ kV6uwludg9lmbnukQzBaGQLy VMj6KCb5AHOftTjaJxLcGQU9 OyB2 MJD2hGSweF7jxJqdeusjdE6a Oyc+FHi0k8xzxYCyWE7yrZS0 CZ79XW89gTNnz5E2tPV6U2Xe ZGRp ihnabkrwyWB0TJUjKEQqoJ57 Mo9daYswTz6kMEMaDYM0KDGh zOVhE3FcyG0uCsBeGJZiPFHt O3Rl mIQiGGhgP771TAdbXaT5PVEp gfDqS8AtATPrwHpxFlH8r2F4 Ho5KQI74GL45FI85oWXev6N7 bGU9 A0NmUUTignmzvgjlrMJ6KBCn MPLwaZ75Dm0gtJerRk8jSMFn NZA0RJOfjJErG4EqcI1cNbOs MDAw EQXeL8SmuCEwINgjD614FLlu NmE1IPLdvvNtW7SjMKHvjQst BrA7j7S6Xy0YIa67GL89TB95 dGQg d3W2wIL3F9XoRCEuvhlrtrvc fBR2AJIhXHOmlN14Dp1rtGmr Qk9xNKJoHXJ4JHOmlVQjM7Za bG9y McLeIWFjABDgV6TtuVTxHYef B378YTzvHqR1UIMsjkDsN4Bo ZXFhaDuwPyB6j7U5Ec3KZMrk cjo8 G9RpLkgomAK+JD63FHDlQV03 mGXdsOCer6jgaJo2UeRaIDKt WBJ4dAtwCYkha6SwQLHaL83y bGFw c2U (more content not included)... Normal [facility] Provider Orderson 05-19-2024 Provider Orders [id number] IFF [facility] CMP Standardon 04-21-2024 eGFR Non AA >60 Invalid Interpretation Code [facility] Comment on above: Performed By: #### 2 773910, 3644275, 6453123, 5272726, 3712794, [id number], [id number] #### [facility] (DEFAULT) [address] [place] [address] eGFR AA >60 Invalid Interpretation Code [facility] Comment on above: Performed By: #### 2 012461, 5766497, 0194209, 6417640, 8272232, [id number], [id number] #### [facility] (DEFAULT) [address] [place] [address] 45732 Albumin [Mass/Vol] 3.9 g/dL Normal 3.5-5.0 [facility] Comment on above: Performed By: #### 2 543491, 3039426, 3329517, 4439371, 2116436, [id number], [id number] #### [facility] (DEFAULT) [address] [place] [address] 81080 Albumin/Globulin [Mass ratio] 1.2 {ratio} Low 1.4-2.6 [facility] Comment on above: Performed By: #### 2 485574, 3745424, 2667868, 0595783, 3681360, [id number], [id number] #### [facility] (DEFAULT) [address] [place] [address] Alk Phos 66 IU/L Normal 32-91 [facility] Comment on above: Performed By: #### 2 986943, 3951968, 5132813, 0531486, 8458578, [id number], [id number] #### [facility] (DEFAULT) [address] [place] [address] ALT [Catalytic activity/Vol] 22.0 U/L Normal 14.0-54.0 [facility] Comment on above: Performed By: #### 2 415056, 6674832, 6831950, 1690148, 3114986, 5054643763, [id number] #### [facility] (DEFAULT) [address] [place] [address] Anion gap [Moles/Vol] 10.6 mmol/L Normal 5.0-19.0 [facility] Comment on above: Performed By: #### 2 478794, 7155559, 7539509, 6499277, 2712738, [id number], [id number] #### [facility] (DEFAULT) [address] [place] [address] AST [Catalytic activity/Vol] 20 U/L Normal 15-41 [facility] Comment on above: Performed By: #### 2 485458, 2711071, 6653331, 1910905, 5691187, 8471630591, [id number] #### [facility] (DEFAULT) [address] [place] [address] Bili Total 0.7 mg/dL Normal 0.3-1.2 [facility] Comment on above: Performed By: #### 2 790172, 4281496, 9777997, 2400938, 4136398, 1458180670, [id number] #### [facility] (DEFAULT) [address] [place] [address] Calcium [Mass/Vol] 8.8 mg/dL Low 8.9-10.3 [facility] Comment on above: Performed By: #### 2 235883, 7954803, 1971296, 1375672, 5838203, 4732205382, [id number] #### [facility] (DEFAULT) [address] [place] [address] 60875 Chloride [Moles/Vol] 108 mmol/L Normal 101-111 [facility] Comment on above: Performed By: #### 2 701304, 8683439, 3943561, 9311280, 9873570, 4463791667, [id number] #### [facility] (DEFAULT) [address] [place] [address] 01142 CO2 [Moles/Vol] 24 mmol/L Normal 21-32 [facility] Comment on above: Performed By: #### 2 527335, 4783754, 9118129, 1306427, 2851539, 8836116902, [id number] #### [facility] (DEFAULT) [address] [place] [address] 34566 Creatinine [Mass/Vol] 0.79 mg/dL Normal 0.60-1.30 [facility] Comment on above: Performed By: #### 2 103522, 4769107, 0593627, 5263727, 6153766, 3375407867, [id number] #### [facility] (DEFAULT) [address] [place] [address] 03939 Globulin (S) [Mass/Vol] 3.2 g/dL Normal 1.5-4.3 [facility] Comment on above: Performed By: #### 2 270980, 0147994, 4800191, 5013298, 1208427, 0922237898, [id number] #### [facility] (DEFAULT) [address] [place] [address] 84569 Glucose [Mass/Vol] 114.0 mg/dL Normal 74.0-118.0 [facility] Comment on above: Performed By: #### 2 587972, 3448546, 0041323, 0182909, 0417860, 3296691582, [id number] #### [facility] (DEFAULT) [address] [place] [address] 99930 Osmolality 280 mOsm/L Invalid Interpretation Code [facility] Comment on above: Performed By: #### 2 066939, 6071978, 5562883, 0925607, 5742453, 3080255205, 4710630644 #### [facility] (DEFAULT) [address] [place] [address] 53411 Potassium [Moles/Vol] 3.6 mmol/L Normal 3.6-5.1 [facility] Comment on above: Performed By: #### 2 512734, 7443997, 8529712, 9322912, 4247479, 9163878277, 1620571687 #### [facility] (DEFAULT) [address] [place] [address] 14331 Protein [Mass/Vol] 7.1 g/dL Normal 6.5-8.1 [facility] Comment on above: Performed By: #### 2 887886, 7398763, 6286007, 3874356, 8937309, 5649636873, 5763603530 #### [facility] (DEFAULT) [address] [place] [address] 59863 Sodium [Moles/Vol] 139.0 mmol/L Normal 136.0-144.0 [facility] Comment on above: Performed By: #### 2 096729, 4402008, 1308593, 6803189, 8269764, 9503368350, 9430169728 #### [facility] (DEFAULT) [address] [place] [address] 85121 Urea nitrogen [Mass/Vol] 16 mg/dL Normal 8-26 [facility] Comment on above: Performed By: #### 2 399416, 1269947, 6910280, 0522227, 2027048, 3793847563, [id number] #### [facility] (DEFAULT) [address] [place] [address] 30631 Urea nitrogen/Creatinin e [Mass ratio] 20.2 mg/mg High 4.6-16.2 [facility] Comment on above: Performed By: #### 2 123643, 2387306, 7835654, 5930213, 0582198, 0988432349, 1744489485 #### [facility] (DEFAULT) [address] [place] [address] 94075 GGTon 04-21-2024 Gamma glutamyl transferase [Catalytic activity/Vol] 19.0 U/L Normal 7.0-50.0 [facility] Comment on above: Performed By: #### 2 806229, 1385175, 6670969, 9986877, 7457094, 4951380649, 2753633232 #### [facility] (DEFAULT) [address] [place] [address] 41976 Iron Levelon 04-21-2024 Iron [Mass/Vol] 75.0 ug/dL Normal 28.0-170.0 [facility] Comment on above: Performed By: #### 2 472061, 7374281, 7742767, 0188590, 8282683, 5865420820, 7477037728 #### [facility] (DEFAULT) [address] [place] [address] 09634 LDHon 04-21-2024 LDH 148.0 IU/L Normal 98.0-192.0 [facility] Comment on above: Performed By: #### 2 269466, 5223958, 0093091, 3072735, 3568104, 4809902153, 2633425266 #### [facility] (DEFAULT) [address] [place] [address] 24906 Lipid Panel Standardon 04-21 Cholesterol [Mass/Vol] 162.0 mg/dL Normal 66.0-200.0 [facility] Comment on above: Performed By: #### 2 679423, 7688535, 2073265, 9778258, 0967212, 8751023280, 5602167392 #### [facility] (DEFAULT) [address] [place] [address] 62114 Cholesterol in HDL [Mass/Vol] 50 mg/dL Normal 40-71 [facility] Comment on above: Performed By: #### 2 872442, 9863498, 1353027, 4416175, 6285961, 9641490477, 4183420555 #### [facility] (DEFAULT) [address] [place] [address] 25532 Cholesterol in LDL [Mass/Vol] 97 mg/dL Normal 1-100 [facility] Comment on above: Performed By: #### 2 650109, 1635567, 6827779, 5005131, 8680051, 3725954822, [id number] #### [facility] (DEFAULT) [address] [place] [address] Cholesterol.total/ Cholesterol in HDL [Mass ratio] 3.2 {ratio} Normal 0.0-4.5 [facility] Comment on above: Performed By: #### 2 644399, 2416035, 6752321, 0793673, 0155626, 2603847337, [id number] #### [facility] (DEFAULT) [address] [place] [address] Triglyceride [Mass/Vol] 77.0 mg/dL Normal 0.0-150.0 [facility] Comment on above: Performed By: #### 2 027579, 5311282, 0849245, 5167025, 0029294, 7876760753, [id number] #### [facility] (DEFAULT) [address] [place] [address] VLDL. 15 mg/dL Normal 5-40 [facility] Comment on above: Performed By: #### 2 809691, 7947009, 3967921, 6693220, 8283834, 5079914089, 9769395984 #### [facility] (DEFAULT) [address] [place] [address] Phoson 04-21-2024 Phosphate [Mass/Vol] 2.8 mg/dL Normal 2.5-4.6 [facility] Comment on above: Performed By: #### 2 464669, 3689718, 0772331, 8215374, 4657732, 5896247004, [id number] #### [facility] (DEFAULT) [address] [place] [address] Uric Acidon 04-21-2024 Urate [Mass/Vol] 4.8 mg/dL Normal 2.6-8.0 [facility] Comment on above: Performed By: #### 2 368224, 4133211, 1066136, 3342952, 6141365, 1418204173, [id number] #### [facility] (DEFAULT) [address] [place] [address] [facility] DIGITAL SCREEN W OR WO C AD BILATERALon 03-24-2018 [facility] DIGITAL SCREEN W OR WO CAD BILATERAL EXAMINATION:BILATERAL DIGITAL SCREENING MAMMOGRAM, 03/24/2018TECHNIQUE:CC and MLO views of the left and right breasts were obtained. Computer aideddetection was utilized in the interpretation of this exam. 3D tomosynthesisimages were obtained.COMPARISON:Prev ious mammogram dated 03/09/2017, 03/17/2016, 03/10/2016HISTORY:Screen ing.FINDINGS:There are scattered fibroglandular densities in both breasts. There is nosuspicious mass, architectural distortion, or calcification.IMPRESSION : No mammographic findings of malignancy.BIRADS:BIRADS - CATEGORY 1Negative, no evidence of malignancy. Normal interval follow-up isrecommended in 12 months.OVERALL ASSESSMENT - NEGATIVEA letter of notification will be sent to the patient regarding the results.[employer] recommends annual mammograms for women 40years and older.Interpreted by:Radha Gale, DOSigned by:Radha Gale, DO03/24/18inal result Normal [facility] HPV DNA High Riskon 03-17-20 18 HPV Interp Normal [facility] Comment on above: Result Comment: This test [...] other forensic purposes. Performed By: #### H [facility] ####[address] [place] [address] HPV Type 16 Not Detected Normal NOTDET [facility] Comment on above: Performed By: #### H [facility] ####[facility] [address] [place] [address] HPV Type 18 Not Detected Normal [facility] Comment on above: Performed By: #### H [facility] ####[facility] [address] [place] [address] Other High Risk HPV Not Detected Normal [facility] Comment on above: Performed By: #### H [facility] ####[facility] [address] [place] [address] HPV DNA High Riskon 03-16-20 18 HPV Sample .THIN PREP Normal [facility] Comment on above: Performed By: #### H [facility] ####[facility] [place] [address] [address] CERVICAL MATERIAL Normal [facility] Comment on above: Performed By: #### H [facility] ####[address] [place] [address] Progress Noteon 03-15-2018 HIM IP Note OR Gasfitter Normal [facility] Vital Signs Date Time Vital Sign Value Performing Clinician Gayatri garcia 12-12-2024 14:38-0400 Body mass index (BMI) [Ratio] 35.68 kg/m2 Meghan JIMENEZ Work Phone: [facility] 12-12-2024 14:38-0400 Body weight 97.25 kg Meghan JIMENEZ Work Phone: [facility] 12-12-2024 14:38-0400 Diastolic blood pressure 78 mm[Hg] Meghan JIMENEZ Work Phone: [facility] 12-12-2024 14:38-0400 Systolic blood pressure 120 mm[Hg] Meghan JIMENEZ Work Phone: [facility] 10-30-2024 10:22-0400 Body mass index (BMI) [Ratio] 36.05 kg/m2 Leonardo Brumfield DO Work Phone: [facility] 10-30-2024 10:22-0400 Body weight 97.52 kg Leonardo Brumfield DO Work Phone: [facility] 10-30-2024 10:22-0400 Diastolic blood pressure 80 mm[Hg] Leonardo Brumfield DO Work Phone: [facility] 10-30-2024 10:22-0400 Heart rate 74 /min Leonardo Brumfield DO Work Phone: [facility] 10-30-2024 10:22-0400 Systolic blood pressure 119 mm[Hg] Leonardo Brumfield DO Work Phone: [facility] 09-25-2024 10:39-0500 Body mass index (BMI) [Ratio] 35.38 kg/m2 Leonardo Brumfield DO Work Phone: [facility] 09-25-2024 10:39-0500 Body weight 95.71 kg Leonardo Brumfield DO Work Phone: [facility] 09-25-2024 10:39-0500 Diastolic blood pressure 85 mm[Hg] Leonardo Brumfield DO Work Phone: [facility] 09-25-2024 10:39-0500 Heart rate 71 /min Leonardo Brumfield DO Work Phone: [facility] 09-25-2024 10:39-0500 Systolic blood pressure 132 mm[Hg] Leonardo Brumfield DO Work Phone: [facility] Encounters Encounter Date Encounter Type Care Provider Facility Start: 12-12-2024 End: 12-12-2024 Bamboo flowsheet Meghan JIMENEZ Work Phone: [facility] Start: 12-12-2024 End: 12-12-2024 Bamboo flowsheet Meghan JIMENEZ Work Phone: [facility] Start: 12-12-2024 End: 12-12-2024 Patient encounter procedure Meghan JIMENEZ Work Phone: [facility] Work Phone: Start: 12-12-2024 End: 12-12-2024 Periodic preventive med est patient 40-64yrs Meghan JIMENEZ Work Phone: [facility] Comment on above: Well woman exam with routine gynecological exam; Breast cancer screening by mammogram Start: 10-30-2024 End: 10-30-2024 Office outpatient visit 10 minutes Leonardo Brumfield DO Work Phone: [facility] Comment on above: Varicose veins of osiris th lower extremities with pain (Primary Dx); Nocturnal leg cramps Start: 10-30-2024 End: 10-30-2024 ambulatory [facility] Start: 10-12-2024 End: 10-12-2024 ambulatory [facility] Start: 09-25-2024 End: 09-25-2024 Office outpatient visit 15 minutes Leonardo Brumfield DO Work Phone: [facility] Comment on above: Claudication (CMS-HC C) (Primary Dx); Varicose veins of both lower extremities with pain Start: 09-25-2024 End: 09-25-2024 ambulatory [facility] Start: 05-25-2024 End: 05-25-2024 ambulatory [facility] Facility:[facility] Start: 03-01-2024 End: 03-01-2024 ambulatory [facility] Facility:[facility] Start: 12-02-2023 End: 12-02-2023 ambulatory MEGHAN MALAVE Not Available Start: 03-24-2018 End: 03-27-2018 Patient encounter [facility] Start: 03-15-2018 Encounter for gynecological examination (general) (routine) without abnormal findings [facility] Start: 03-15-2018 End: 03-16-2018 Patient encounter [facility] Procedures Date Procedure Procedure Detail Performing Clinician Start: 09-25-2024 Follow-up visit Follow-up LEONARDO BRUMFIELD Start: 12-30-2023 Mammography Meghan JIMENEZ Work Phone: Start: 12-02-2023 Microscopic observat ion [Identifier] in Cervix by Cyto stain Leonardo Brumfield DO Work Phone: Start: 03-24-2018 Screening mammograph y bi 2-view breast inc cad LUISITO RUBIO Start: 03-15-2018 Cytopathology proced ure, preparation of smear, genital source LUISITO RUBIO Plan of Treatment Date Care Activity Detail Author Start: 12-28-2030 DTaP,Tdap and Td Vaccines (2 - Td or Tdap) DTaP,Tdap and Td Vaccines (2 - Td or Tdap) [facility] Start: 12-01-2026 Screening for malignant neoplasm of cervix [facility] Start: 12-18-2025 End: 12-18-2025 Patient encounter procedure 12/18/2025 2:00 PM EDT Office Visit [facility] [address] [place] [address] Meghan Malave PA [address] [address] [facility] Start: 10-30-2025 Adult BMI Screening Adult BMI Screen ing [facility] Start: 10-30-2025 Tobacco Screening Tobacco Screening [facility] Start: 09-27-2025 Tobacco Screening Tobacco Screening [facility] Start: 09-25-2025 Adult BMI Screening Adult BMI Screen ing [facility] Start: 03-26-2025 Influenza vaccination [facility] Start: 02-05-2025 End: 02-05-2025 Patient encounter procedure 02/05/2025 9:15 AM EDT Office Visit [facility] [place] [address] Leonardo Brumfield, [address] [facility] [address] [place] [id number] [facility] Start: 12-29-2024 Screening for malignant neoplasm of breast Mammogram [facility] Start: 12-12-2024 End: 02-11-2026 MG Breast - bilateral Screening Bilateral screening mammogram Imaging Routine Breast cancer screening by mammogram Expected: 12/12/2024, Expires: 02/11/2026 [facility] Work Phone: Comment on above: Expected: 12/12/2024 , Expires: 02/11/2026 Start: 10-30-2024 End: 10-30-2024 Patient encounter procedure 10/30/2024 10:00 AM EDT Office Visit [address] [place] [address] Leonardo Brumfield, DO [address] [place] [address] [facility] Start: 10-12-2024 End: 10-12-2024 Patient encounter procedure 10/12/2024 9:45 AM EDT Appointment [facility] [address] [facility] [place] [address] Leonardo Brumfield, DO [address] [place] [address] [facility] Start: 10-12-2024 End: 10-12-2024 Patient encounter procedure 10/12/2024 8:30 AM EDT Appointment [facility] [address] [place] [address] Leonardo Brumfield, DO [address] [place] [address] [facility] Start: 09-25-2024 End: 03-28-2026 US.doppler Extremity arteries - bilateral for physiologic artery study Vas art doppler lwr bilat mult lev/PVR Vascular Ultrasound Routine Claudication ([facility]) Expected: 09/25/2024, Expires: 03/28/2026 [facility] Work Phone: Comment on above: Expected: 09/25/2024 , Expires: 03/28/2026 Start: 09-25-2024 End: 09-25-2025 US.doppler Lower extremity vein - bilateral Vas venous duplex insufficiency lwr bi Vascular Ultrasound Routine Varicose veins of both lower extremities with pain Expected: 09/25/2024, Expires: 09/25/2025 [facility] Comment on above: Expected: 09/25/2024 , Expires: 09/25/2025 Start: 03-26-2024 COVID-19 Vaccine () COVID-19 Vaccine () [facility] Start: 03-15-2023 Screening for malignant neoplasm of cervix HPV/Cotest [facility] Start: 1982 Depression Screening Depression Scre ening [facility] Start: 1970 Screening for malignant neoplasm of colon [facility] THIN PREP TIS PAP AN D HR HPV DNA THIN PREP TIS PAP AND HR HPV DNA Pathology and Cytology Routine Well woman exam with routine gynecological exam Ordered: 12/12/[address] [facility] Comment on above: Ordered: 12/12/2024 Immunizations Immunization Date Immunization Notes Care Provider Sheila farah 04-21-2024 influenza virus vaccine, unspecified formulation Leonardo Sarthak DO Work Phone: [facility] Payers Date Payer Category Payer Private Health Insurance [employer] [id number] 2022 Private Health Insurance [id number] 2017 Commercial Managed C are - PPO [employer] Member Subscriber Plan / Payer (Effective 2017-Present) Name: Verna Ro Relation to Subscriber: Self Name: Verna Ro Payer ID: Not on file Type: Not on file Address: [place] [id number] 2017 Unknown [id number] 2014 Unknown [id number] 1970 Unknown [id number] 1970 Unknown [id number] 1970 Unknown [id number] 1970 Unknown [id number] 1970 Unknown [id number] 1970 Unknown [id number] Social History Date Type Detail Facility Start: 09-29-2022 Tobacco smoking status NHIS Never smoked tobacco [facility] Start: 09-29-2022 Tobacco use and exposure Smokeless tobacco non-user [facility] Start: 09-27-2024 End: 11-07-2024 Alcoholic beverage intake Ex-drinker (finding) [facility] Start: 08-28-2020 End: 09-27-2024 History of Social function [facility] Start: 08-28-2020 End: 09-27-2024 Tobacco use panel [facility] Childcare Unknown [facility] Start: 1970 Sex assigned at Not on file [facility] Start: 02-28-2015 Sex Female (finding) [facility] Start: 1970 Sex assigned at Female [facility] Start: 11-04-2023 Gender identity Identifies as female gender (finding) [facility] Start: 11-04-2023 Sexual orientation Heterosexual (finding) [facility] History of Present illness Narrative 12-12-2024 BARBARA Mon - 12/12/2024 2:00 PM EDT Note Date & Type Note Facility 12-12-2024 History of Presen t illness Narrative Reason for Appointment: Patient ID: Verna Ro is a 54 y.o. female who presents for Well Women Visit Patient presents today for Annual Exam. MEDICATIONS Current Outpatient Medications Medication Instructions cetirizine (ZYRTEC) 10 mg, Daily Cholecalciferol (Vitamin D) 125 MCG (5000 UT) capsule ivermectin (Stromectol) 3 MG tablet LDN LISINOPRIL-HYDROCHLOROTHIAZIDE PO NAC 600 MG capsule Nattokinase 100 MG capsule ALLERGIES No Known Allergies PROBLEMS Active Ambulatory Problems Diagnosis Date Noted No Active Ambulatory Problems Resolved Ambulatory Problems Diagnosis Date Noted No Resolved Ambulatory Problems No Additional Past Medical History HISTORY PAST MEDICAL HISTORY SOCIAL HISTORY History reviewed. No pertinent past medical history. Social History Tobacco Use Smoking status: Not on file Smokeless tobacco: Not on file Substance Use Topics Alcohol use: Not on file Drug use: Not on file FAMILY HISTORY No family history on file. SURGICAL HISTORY Past Surgical History: Procedure Laterality Date SECTION, LOW TRANSVERSE 1990 DILATION AND CURETTAGE OF UTERUS ENDOMETRIAL ABLATION TUBAL LIGATION 1998 WISDOM TOOTH EXTRACTION 1988 REVIEW OF SYSTEMS Review of Systems: Review of Systems Constitutional: Negative. HENT: Negative. Eyes: Negative. Respiratory: Negative. Cardiovascular: Negative. Gastrointestinal: Negative. Genitourinary: Negative. Musculoskeletal: Negative. Skin: Negative. Neurological: Negative. All other systems reviewed and are negative. Hematological: Negative. Endocrine: Negative. Allergic/Immunologic: Negative. OBJECTIVE Objective: Physical Exam Constitutional: Appearance: Normal appearance. Genitourinary: Right Adnexa: not tender and no mass present. Left Adnexa: not tender and no mass present. No cervical discharge. Breasts: Breasts are soft. Right: Normal. Left: Normal. HENT: Head: Normocephalic. Nose: Nose normal. Mouth/Throat: Mouth: Mucous membranes are moist. Cardiovascular: Rate and Rhythm: Normal rate. Pulmonary: Effort: Pulmonary effort is normal. Abdominal: General: Bowel sounds are normal. Palpations: Abdomen is soft. Musculoskeletal: General: Normal range of motion. Cervical back: Normal range of motion. Neurological: General: No focal deficit present. Mental Status: She is alert. Skin: General: Skin is warm and dry. Psychiatric: Mood and Affect: Mood normal. Vitals and nursing note reviewed. Exam conducted with a postdoctoral scholar present. Vitals: Estimated body mass index is 35.68 kg/m as calculated from the following: Height as of 01/23/20: 5' 5 . Weight as of this encounter: 214 lb 6.4 oz. BP: 120/78 No LMP recorded. Patient is postmenopausal. ASSESSMENT & PLAN ICD-10-CM 1. Well woman exam with routine gynecological exam Z01.419 THIN PREP TIS PAP AND HR HPV DNA 2. Breast cancer screening by mammogram Z12.31 Bilateral screening mammogram Bilateral screening mammogram Annual Exam: Patient presents today for an annual exam. Patient states she is doing well and has no complaints. Pap was obtained without difficulty. Orders Placed This Encounter Procedures Bilateral screening mammogram Follow Up: Patient is to return in one year for annual unless needed otherwise. Documented by BARBARA Mon on behalf of: BARBARA Mon documented in this encounter [facility] History of Present illness Narrative 10-30-2024 Leonardo Brumfield DO - 10/30/2024 10:00 AM EDT Note Date & Type Note Facility 10-30-2024 History of Present illness Narrative Images from the original note were not included. CC: Chief Complaint Patient presents with Follow-up Claudication Testing done 54 y.o. female with pre-DM and c/o bilat LE aching, edema and nocturnal cramping. 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 On average has night leg cramps approx 3-4 nights/wk. Walking helps w/ cramping symptoms. Pt states both of her parents young 40/60s) due to cardiac issues. Has followed w/ PCP due to intermittent CRP elevation and recently underwent life-screen exam. Pt states she was told she had abnormal R SIM (2.0) and was told to f/u w/ vascular for further eval/mgmt. Previously wore compression stockings regularly and did feel they were helpful. No previous vein treatments. Denies obvious bulging varicose veins. +prominent spider veins. Venous insufficiency US and SIM/PVR ordered. 10/30/24: Pt states since last seen in office she has continued w/ L lateral calf pain. C/o pain that woke her from sleep last night. Steroids started per PCP and did seem to improve L hip pain while on them. Steroids now completed x couple of wks and feels her symptoms have returned. L hip XR ordered per PCP but has not yet been completed. Had initial eval w/ [employer] for home LP and felt significant improvement w/ short trial. Has not yet had pump delivered. Going to [place] next wk and anticipates edema. Chief Complaint Patient presents with Follow-up Claudication Testing done Patient Active Problem List Diagnosis Nocturnal leg cramps BP 119/80 Pulse 74 Wt 97.5 kg (215 lb) BMI 36.05 kg/m Past Medical History: Diagnosis Date Arthritis Seasonal allergies Past Surgical History: Procedure Laterality Date SECTION COLONOSCOPY DILATION AND CURETTAGE OF UTERUS ENDOMETRIAL ABLATION TUBAL LIGATION ROS: Review of Systems Respiratory: Negative for shortness of breath. Cardiovascular: Positive for leg swelling. Negative for chest pain. +h/o anxiety Gastrointestinal: Negative for abdominal pain and blood in stool. Genitourinary: Negative for difficulty urinating and hematuria. Skin: Negative for rash and wound. Cancer screening: Colon cancer screening: Up to date - cscope at 50 yo. Mammogram/Breast cancer screening: Up to date Pelvic/Sharepoint Engineer cancer screening: Up to date Never Smoker Personal history of: negative: CVA negative: DVT, PE negative: NM, CAD, HTN negative: PAD, PVD, claudication negative: dilated LE veins/varicose veins +spider veins +pre-DM Family history of: Father - at 42 (cardiac blood clot) Mother - in 60s (NM) negative: Aneurysms Physical Exam: Physical Exam Vitals and nursing note reviewed. Constitutional: Appearance: Normal appearance. HENT: Head: Normocephalic and atraumatic. Pulmonary: Effort: Pulmonary effort is normal. Musculoskeletal: General: Normal range of motion. Comments: Moving all ext equally Skin: General: Skin is warm and dry. Neurological: General: No focal deficit present. Mental Status: She is alert and oriented to person, place, and time. Psychiatric: Attention and Perception: Attention normal. Mood and Affect: Mood normal. Speech: Speech normal. Behavior: Behavior is cooperative. CEAP classification (note all that apply or n/a): CEAP - Clinical class Right Left C0 - No visible or palpable signs of venous disease C1 - Telangiectasias or reticular veins X X C2 - Varicose veins C3 - Edema X X C4a - Pigmentation or eczema C4b - Lipodermatosclerosis or atrophie rupert C4c - Ulloa phlebectatica X X C5 - Healed venous ulcer C6 - Active venous ulcer S or A - Symptomatic, i.e. ache, pain, tightness, skin irritation, heaviness, muscle cramps, other complaints attributable to venous dysfunction vs. asymptomatic. S S Venous clinical severity score (VCSS)--none: 0, mild: 1, moderate: 2, severe: 3. Right Left Pain (0- none, 1- occasional pain, not restricting activity, 2- daily pain, interferes with but doesn't prevent regular activity, 3- daily pain, limits most regular daily activity. 2 2 Varicose veins (>/= 3 mm) 0- none, 1 - few scattered, isolated clusters, ulloa phlebectatica, 2- confined to calf or thigh, 3- involves calf and thigh. 1 1 Venous edema 0- none, 1- limited to foot and ankle, 2- extends above ankle but below knee, 3- extends to knee and above. 2 2 Skin pigmentation (NOT localized over vv) 0- none, 1- limited to perimalleolar area, 2- diffuse over lower third of calf, 3- wider distribution above lower third of calf. 0 0 Inflammation (i.e. erythema, cellulitis, venous eczema, dermatitis) 0- none, 1- limited to perimalleolar area, 2- diffuse over lower third of calf, 3- wider distribution above lower third of calf 0 0 Induration (i.e. fibrosis, atrophie rupert, LDS) 0- none, 1- limited to perimalleolar area, 2- diffuse over lower third of calf, 3- wider distribution above lower third of calf. 0 0 Active ulcer number- 0- none, 1, 2, >/= 3 Active ulcer duration- < 3 mo (1), > 3 mo < 1 y (2), not healed > 1 y (3) Active ulcer size- diameter < 2 cm (1) , 2-6 cm (2), > 6 cm (3) 0 0 Use of compression therapy 0- not used, 1- intermittent use, 2- wears most days, 3- full compliance 1 1 VCSS summary: right le, left le. Testing Reviewed: CBC with Differential: No results found for: WBC , RBC , HGB , HCT , PLT , MCV , MCH , MCHC , RDW BMP: No results found for: SODIUM , K , CL , CO2 , BUN , CREATININE , LABCREA , EGFR , GLU , LABGLUC , CA HgBA1c: No results found for: HGBA1C Assessment/Plan of care: Please note that total time spent was 15 minutes: Including but not limited to: Preparing to see the patient (e.g., review of tests) Obtaining and/or reviewing separately obtained history Performing a medically appropriate examination and evaluation Counseling and educating the patient/family/caregiver Ordering medications, tests, or procedures In office [facility] imaging and review of findings Documenting visit details Greater than 50% was devoted to counseling and coordination of care, discussing the normal function of deep and superficial venous systems, and explaining the pathologic processes that lead to ambulatory venous hypertension and leg symptoms of heaviness, fatigue, etcetera. Encounter Diagnoses Name Primary? Varicose veins of both lower extremities with pain Yes Nocturnal leg cramps Verna was seen today for follow-up and claudication. Diagnoses and all orders for this visit: Varicose veins of both lower extremities with pain Nocturnal leg cramps 1. Varicose veins of both lower extremities with pain 2. Nocturnal leg cramps 54 y.o. female with h/o pre-DM and c/o bilat LE aching, edema and nocturnal cramping. 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 Lipedema is felt to be an independent cause of patient's ongoing chronic functional impairment and causes interference w/ activities of daily living. While there is currently no cure for Lipedema, there are various Lipedema treatment and care/maintenance options with ultimate goal of effectively managing symptoms and improving quality of life. Improve lymphatic flow: Continue w/ lymphedema/lipedema clinic referral. Compression: encouraged daily compression stockings and/or wraps as tolerated. Home lymphatic pumps: pumps ordered, initial eval completed - now pending insurance. LE edema/venous insufficiency: Long discussion held regarding normal venous anatomy, pathophysiology of venous reflux, and diagnostic duplex US. Venous insufficiency US 10/12/24: R - No DVT/SVT. No deep reflux. + GSV reflux mid-calf, mid GSV tributary branch reflux. L - No DVT/SVT. No deep reflux. + GSV reflux. Venous insufficiency testing reviewed. Will f/u hip XR and consider CTV if no acute XR findings. Pt to notify office if interested in CTV prior to next visit. Encouraged pt to wear compression stockings daily and continue w/ regular activity, weight loss, and rest/elevation as able. Continue w/ anti-inflammatories as needed. Monitor symptoms. Nocturnal leg cramps: Often multi-factorial. Likely secondary to venous insufficiency and potential restless leg syndrome. SIM/PVR 10/12/24 - normal at rest. Return to office in 3 mo after XR hip (and possible CTV) completed to discuss compliance w/ compression stockings, persistent symptoms and review testing results. Leonardo Brumfield DO Vascular Surgery documented in this encounter [facility] History of Present illness Narrative 09-25-2024 Leonardo Brumfield DO - 09/25/2024 10:30 AM EST Note Date & Type Note Facility 09-25-2024 History of Present illness Narrative Images from the original note were not included. CC: Chief Complaint Patient presents with Follow-up New patient- pt states had [facility] screening and testing showed she had abnormal SIM- SAID SHE ALSO WAKES UP AT NIGHT WITH ACHING IN BLE 54 y.o. female with pre-DM and c/o bilat LE aching, edema and nocturnal cramping. 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 On average has night leg cramps approx 3-4 nights/wk. Walking helps w/ cramping symptoms. Pt states both of her parents young 40/60s) due to cardiac issues. Has followed w/ PCP due to intermittent CRP elevation and recently underwent life-screen exam. Pt states she was told she had abnormal R SIM (2.0) and was told to f/u w/ vascular for further eval/mgmt. Previously wore compression stockings regularly and did feel they were helpful. No previous vein treatments. Denies obvious bulging varicose veins. +prominent spider veins. Chief Complaint Patient presents with Follow-up New patient- pt states had [facility] screening and testing showed she had abnormal SIM- SAID SHE ALSO WAKES UP AT NIGHT WITH ACHING IN BLE Patient Active Problem List Diagnosis Nocturnal leg cramps BP 132/85 Pulse 71 Wt 95.7 kg (211 lb) BMI 35.38 kg/m Past Medical History: Diagnosis Date Arthritis Seasonal allergies Past Surgical History: Procedure Laterality Date SECTION COLONOSCOPY DILATION AND CURETTAGE OF UTERUS ENDOMETRIAL ABLATION TUBAL LIGATION ROS: Review of Systems Respiratory: Negative for shortness of breath. Cardiovascular: Positive for leg swelling. Negative for chest pain. +h/o anxiety Gastrointestinal: Negative for abdominal pain and blood in stool. Genitourinary: Negative for difficulty urinating and hematuria. Skin: Negative for rash and wound. Cancer screening: Colon cancer screening: Up to date - cscope at 50 yo. Mammogram/Breast cancer screening: Up to date Pelvic/Sharepoint Engineer cancer screening: Up to date Never Smoker Personal history of: negative: CVA negative: DVT, PE negative: NM, CAD, HTN negative: PAD, PVD, claudication negative: dilated LE veins/varicose veins +spider veins +pre-DM Family history of: Father - at 42 (cardiac blood clot) Mother - in 60s ([place]) negative: Aneurysms Physical Exam: Physical Exam Vitals and nursing note reviewed. Constitutional: Appearance: Normal appearance. HENT: Head: Normocephalic and atraumatic. Pulmonary: Effort: Pulmonary effort is normal. Musculoskeletal: General: Normal range of motion. Comments: Moving all ext equally Skin: General: Skin is warm and dry. Neurological: General: No focal deficit present. Mental Status: She is alert and oriented to person, place, and time. Psychiatric: Attention and Perception: Attention normal. Mood and Affect: Mood normal. Speech: Speech normal. Behavior: Behavior is cooperative. CEAP classification (note all that apply or n/a): CEAP - Clinical class Right Left C0 - No visible or palpable signs of venous disease C1 - Telangiectasias or reticular veins X X C2 - Varicose veins C3 - Edema X X C4a - Pigmentation or eczema C4b - Lipodermatosclerosis or atrophie rupert C4c - Ulloa phlebectatica X X C5 - Healed venous ulcer C6 - Active venous ulcer S or A - Symptomatic, i.e. ache, pain, tightness, skin irritation, heaviness, muscle cramps, other complaints attributable to venous dysfunction vs. asymptomatic. S S Venous clinical severity score (VCSS)--none: 0, mild: 1, moderate: 2, severe: 3. Right Left Pain (0- none, 1- occasional pain, not restricting activity, 2- daily pain, interferes with but doesn't prevent regular activity, 3- daily pain, limits most regular daily activity. 2 2 Varicose veins (>/= 3 mm) 0- none, 1 - few scattered, isolated clusters, ulloa phlebectatica, 2- confined to calf or thigh, 3- involves calf and thigh. 1 1 Venous edema 0- none, 1- limited to foot and ankle, 2- extends above ankle but below knee, 3- extends to knee and above. 2 2 Skin pigmentation (NOT localized over vv) 0- none, 1- limited to perimalleolar area, 2- diffuse over lower third of calf, 3- wider distribution above lower third of calf. 0 0 Inflammation (i.e. erythema, cellulitis, venous eczema, dermatitis) 0- none, 1- limited to perimalleolar area, 2- diffuse over lower third of calf, 3- wider distribution above lower third of calf 0 0 Induration (i.e. fibrosis, atrophie rupert, LDS) 0- none, 1- limited to perimalleolar area, 2- diffuse over lower third of calf, 3- wider distribution above lower third of calf. 0 0 Active ulcer number- 0- none, 1, 2, >/= 3 Active ulcer duration- < 3 mo (1), > 3 mo < 1 y (2), not healed > 1 y (3) Active ulcer size- diameter < 2 cm (1) , 2-6 cm (2), > 6 cm (3) 0 0 Use of compression therapy 0- not used, 1- intermittent use, 2- wears most days, 3- full compliance 1 1 VCSS summary: right le, left le. Testing Reviewed: CBC with Differential: No results found for: WBC , RBC , HGB , HCT , PLT , MCV , MCH , MCHC , RDW BMP: No results found for: SODIUM , K , CL , CO2 , BUN , CREATININE , LABCREA , EGFR , GLU , LABGLUC , CA HgBA1c: No results found for: HGBA1C Assessment/Plan of care: Please note that total time spent was 20 minutes: Including but not limited to: Preparing to see the patient (e.g., review of tests) Obtaining and/or reviewing separately obtained history Performing a medically appropriate examination and evaluation Counseling and educating the patient/family/caregiver Ordering medications, tests, or procedures In office [facility] imaging and review of findings Documenting visit details Greater than 50% was devoted to counseling and coordination of care, discussing the normal function of deep and superficial venous systems, and explaining the pathologic processes that lead to ambulatory venous hypertension and leg symptoms of heaviness, fatigue, etcetera. Encounter Diagnoses Name Primary? Varicose veins of both lower extremities with pain Claudication ([facility]) Yes Verna was seen today for follow-up. Diagnoses and all orders for this visit: Claudication ([facility]) - Vas art doppler lwr bilat mult lev/PVR; Future Varicose veins of both lower extremities with pain - [facility] [place], [place] - Vas venous duplex insufficiency lwr bi; Future 1. Varicose veins of both lower extremities with pain - [facility] [place], [place] - Vas venous duplex insufficiency lwr bi; Future 2. Claudication ([facility]) - Vas art doppler lwr bilat mult lev/PVR; Future 54 y.o. female with h/o pre-DM and c/o bilat LE aching, edema and nocturnal cramping. 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 Long discussion held regarding the pathophysiology of lipedema including review of lipedema.org website. Lipedema is felt to be an independent cause of patient's ongoing chronic functional impairment and causes interference w/ activities of daily living. Discussed treatment goals using below lipedema treatment graphic (https://www.lipedema.org/treating-l ipedema#treatment-graphic). While there is currently no cure for Lipedema, there are various Lipedema treatment and care/maintenance options with ultimate goal of effectively managing symptoms and improving quality of life. Improve lymphatic flow: Referral placed to lymphedema/lipedema clinic. Compression: encouraged daily compression stockings and/or wraps as tolerated. Home lymphatic pumps: Pt presents with lymphedema (i89.0)/lipedema and hyperplasia due to chronic lymphedema. Over the last 4+ WEEKS pt has continued to try elevation, exercise, and compression. However, despite regular compliance with these modalities the pt continues to present with persistent edema of bilateral LE. Patient would benefit from a vasopnuematic pump to help move lymphatic fluids past the point of standard compression garments and improve overall quality of life. Will discuss w/ available reps to determine insurance eligibility. LE edema/venous insufficiency: Long discussion held regarding normal venous anatomy, pathophysiology of venous reflux, and diagnostic duplex US. Venous insufficiency testing ordered Encouraged pt to wear compression stockings daily and continue w/ regular activity, weight loss, and rest/elevation as able. Continue w/ anti-inflammatories as needed. Nocturnal leg cramps: Often multi-factorial. Likely secondary to venous insufficiency and potential restless leg syndrome. F/u venous insufficiency US. SIM/PVR ordered. Return to office after venous insufficiency US and SIM/PVR completed to discuss compliance w/ compression stockings, persistent symptoms and review testing results. Leonardo Brumfield DO Vascular Surgery documented in this encounter [facility] Clinical Note 05-25-2024 Note Date & Type Note Facility 05-25-2024 Note CLINICAL DATA: Leg p ain PROCEDURE: Left lower extremity venous duplex ultrasound TECHNIQUE: Reynoso-scale, color flow, and waveform spectral analysis was performed of the left lower extremity. FINDINGS: The left common femoral, profunda femoral, femoral, and popliteal veins were compressible. The saphenous vein was compressible. No venous thrombosis was seen. The veins fill with color Doppler. Augmentation was normal. IMPRESSION: 1. No acute lower extremity deep venous thrombosis. 2. No superficial venous thrombosis. Final Dictated by: Javid Arce Dictated DT/TM: 05/25/24 11:16 Signed (Electronic Signature): Javid Arce 05/25/24 11:16 a Technologist: [facility] Evaluation note Note Date & Type Note Facility Evaluation note Diagnosis Claudication ([facility])- Primary Unspecified peripheral vascular disease Varicose veins of both lower extremities with pain documented in this encounter [facility] Evaluation note Note Date & Type Note Facility Evaluation note Diagnosis Varicose veins of both lower extremities with pain- Primary Nocturnal leg cramps documented in this encounter [facility] Evaluation note Note Date & Type Note Facility Evaluation note Diagnosis Well woman exam with routine gynecological exam Routine gynecological examination Breast cancer screening by mammogram documented in this encounter [facility] Healthcare Instructions Note Date & Type Note Facility Instructions Not on filedocumented in this en counter [facility] Summary Purpose Family History No Family [...] section and content) DATE CREATED AUTHOR 03/16/2018 [facility] [place] DATE CREATED AUTHOR AUTHOR'S ORGANIZ ATION 03/31/2018 [facility] DATE CREATED AUTHOR AUTHOR'S ORGANIZ ATION 12/04/2023 [facility] EPIC DATE CREATED AUTHOR AUTHOR'S ORGANIZ ATION 10/14/2024 [facility] DATE CREATED AUTHOR AUTHOR'S ORGANIZ ATION 10/31/2024 [facility] DATE CREATED AUTHOR AUTHOR'S ORGANIZ ATION 11/23/2024 [facility] Reason for Visit (unrecogniz ed section and content) Reason Comments Follow-up New patient- pt stat es had [facility] screening and testing showed she had abnormal SIM- SAID SHE ALSO WAKES UP AT NIGHT WITH ACHING IN BLE Specialty Diagnoses / Procedures Referred By Xiomara puckett Referred To Contact Vascular Surgery Diagnoses Varicose veins of both lower extremities with pain Alisson Rawls APRN-CNP [address] [place] [address] Phone: tel: fax: [facility] [place] [address] Phone: tel:[phone] fax: Referral ID Status Reason Start Date Expiration Date Visits Requested Visits Authorized [id number] Pending Review Specialty Services Required 09/20/2024 09/20/2025 1 1 Reason Comments Follow-up Claudication Testing done Reason Comments [facility] Visit Care Teams (unrecognized sec tion and content) Base Brander Relationship Specialty Start Date End Date Nick Moody DO [address] [place] [id number] PCP - General 03/04/18 [facility] Relationship Specialty Start Date End Date Nick Moody DO [address] [place] [id number] PCP - General 03/04/18 FOR RECORDS PERTAINING TO PATIENTS WHO ARE [...] BE BASED ON THE PRIMARY CLINICAL RECORDS. [facility] [employer] provides no warranty or guarantee of the accuracy or completeness of information in this document.
[2024-12-15 11:09] LABS: Age Gdln ACOG Testing Note (.); HPV Aptima Negative (Negative); IGP, Aptima HPV, rfx 16/18,45 Note (.)
== END 2024-12-12 19:14 | disposition home or self-care (01) ==
LOC: LAB 19:13
PROVIDERS: Visit Provider Physician Assistant
DX: Z01.419 Encounter for gynecological examination (general) (routine) without abnormal findings (principal)
CPT/HCPCS: 87624; 88175